=== PATIENT | male | born 1945 | race African-American/Black ===

== ENCOUNTER 2017-11-25 05:42 | Inpatient (IN) | payer MEDICARE ==
[2017-11-25 06:01] LABS: #Eosinphils 0.1 thou/uL (0.0-0.7); #Lymphocytes 1.6 thou/uL (1.20-3.40); #Monocytes 0.9 thou/uL (0.11-0.59); #Neutrophils 6.2 thou/uL (1.40-6.50); %Basophils 0.4 % (0.0-1.0); %Eosinophils 0.8 % (0.0-10.0); %Lymphocytes 18.3 % (21.0-51.0); %Monocytes 10.4 % (0.0-10.0); %Neutrophils 70.1 % (42.0-75.0); Hemoglobin 12.2 g/dL (14.0-18.0); Mean Corpuscular HGB CONC 31.4 g/dL (32.0-36.0); Mean Corpuscular Hemoglobin 29.4 pg (27.0-31.0); Mean Corpuscular Volume 93.6 fl (80.0-94.0); Mean Platelet Volume 7.7 fL (7.4-10.4); Platelet Count 209 thou/uL (130-400); RBC Distribution Width 13.2 % (11.5-14.5); Red Blood Cell (RBC) Count 4.16 mill/uL (4.70-6.10); White Blood Cell (WBC) Count 8.8 thou/uL (4.8-10.8)
[2017-11-25] MEDS ORDERED: Nitroglycerin 2% Ointment 1 INCH/1 GM Packet ONE (06:10)
[2017-11-25 06:28] LABS: ALT (SGPT) 20 U/L (8-55); AST (SGOT) 29 U/L (5-34); Albumin 3.8 g/dL (3.4-4.8); Alkaline Phosphatase 65 U/L (40-150); Anion Gap 12 mmol/L (10-20); BUN (Urea Nitrogen) 28 mg/dL (8.4-25.7); Bilirubin, Total 0.3 mg/dL (0.2-1.2); CK (CPK) 76 U/L (30-200); Calc. Creatinine Clearance 0 mL/min (70-130); Calcium 8.9 mg/dL (7.8-10.44); Carbon Dioxide 22 mmol/L (23-31); Chloride 109 mmol/L (98-107); Estimated GFR-MDRD 68; Globulin 3.2 g/dL (2.4-3.5); Glucose 111 mg/dL (83-110); Potassium 3.9 mmol/L (3.5-5.1); Sodium 139 mmol/L (136-145)
[2017-11-25 06:32] LABS: Troponin I Less than 0.010 ng/mL (< 0.028)
[2017-11-25] MEDS ORDERED: methylPREDNISolone Sod Succ/PF 125 MG/2 ML VIAL ONE (06:32)
[2017-11-25 06:42] LABS: Actual Bicarbonate (HCO3a) 20.7 mEq/L (22-26); Base Excess (BEa) -5.4 mEq/L (0 (+/-) 2.5); CO2 Tension 42.6 mmHg (35.0-45.0); Hematocrit-ABG 37.8 % (42.0-52.0); Hemoglobin (Hb) 11.7 g/dL (14.0-18.0); O2 Tension (PaO2) 195.4 mmHg (80.0-100.0)
[2017-11-25 06:43] LABS: Analyzer IN Cardio ER; Calcium, Ionized 1.2 mmol/L (1.12-1.30); Puncture Site RRA
--- NOTE | 2017-11-25 08:11 | RAD ---
RADIOGRAPH CHEST 1 VIEW: HISTORY: 72-year-old male with dyspnea. FINDINGS: There is hyperinflation of the lungs, consistent with COPD. There is no evidence of air space densit y, pneumothorax, or pulmonary edema. The lateral costophrenic angles are sharp. The cardiomediastin al shadow is narrowed by the pulmonary hyperinflation. IMPRESSION: 1. No acute pulmonary findings. 2. Emphysema. daern bear POS: [facility]
[2017-11-25] MEDS ORDERED: Ondansetron HCl/PF 4 MG/2 ML Vial SLOW IVP PRN (10:49)
[2017-11-25 11:33] VITALS: BMI 17.7
[2017-11-25] MEDS: methylPREDNISolone Sod Succ/PF 125 MG/2 ML VIAL IVP SCH ×2 (15:40→20:00)
[2017-11-25] MEDS: Budesonide 0.5 MG/2 ML NEB NEB SCH (18:32)
[2017-11-25] MEDS: Acetaminophen 325 MG TAB PO PRN (20:00)
[2017-11-25] MEDS: Rosuvastatin 20 MG TAB PO SCH (20:00)
[2017-11-25] MEDS: guaiFENesin ER 600 MG TAB PO SCH (20:00)
[2017-11-25] MEDS: Brimonidine Tartrate 0.2% Ophth Soln 5 ml Bottle EA EYE SCH (21:00)
[2017-11-26] MEDS: methylPREDNISolone Sod Succ/PF 125 MG/2 ML VIAL IVP SCH ×2 (01:15→09:35)
--- NOTE | 2017-11-26 02:32 | HP ---
DATE OF ADMISSION: 11/25/2017 CHIEF COMPLAINT: Exacerbation of chronic obstructive pulmonary disease. HISTORY OF PRESENT ILLNESS: The patient is a 72-year-old male who 2 days prior to arrival in the ER had begun having increasing shortness of breath. He regularly takes breathing treatments at home and he maintained these, but despite that coughing increased and O2 sats dropped. Finally, he called EM S and was 84% on room air. They placed him on BiPAP on the way in from [facility], by the carrie e he had arrived and at [facility] after having some neb treatments, he was significantly improved . However, he is still requiring 3 liters of O2 to keep his O2 sats at 92% or above. He denies naus ea, vomiting, diarrhea, or fever. The cough is mainly clear, but occasionally will have color to it. He has not been able to get relief and will be put in the hospital for exacerbation of chronic obst ructive pulmonary disease. He will be going to a critical intermediate care unit due to the severity of his lungs. PAST MEDICAL HISTORY: Significant for previous Mycobacterium avium, requiring years, worse with trip le antibiotic treatment; cardiac history; congestive heart failure; hypertension; as previously menti oned COPD; arthritis, dyslipidemia, anorexia, gastroparesis. PAST SURGICAL HISTORY: He has also had several surgeries including colon surgery, a TURP. PSYCHIATRIC HISTORY: No previous psychiatric history. SOCIAL HISTORY: He is a past smoker, but has quit more than 10 years ago. Denies alcohol use. ALLERGIES: He has no known drug allergies. MEDICATIONS ON ADMISSION: Include brimonidine 0.2% 1 drop to each eye b.i.d., Ziac 10.25 one q. da y, Crestor 20 mg at bedtime, megestrol 40 mg b.i.d., diltiazem 240 mg q. day, Reglan 5 mg q.i.d., tra madol 50 mg q.6 hours p.r.n. pain, Pepcid 20 mg q. day, Mobic 15 mg q. day, and doxazosin 4 mg q. day . REVIEW OF SYSTEMS: On admission, generally denies chills, fever. Has general weakness and has had t rouble maintaining his weight. HEENT: Denies any eye problems at this time with blurred vision, sita n or drainage. No nasal congestion or drainage. Orally no lesions or pain. Neck: No pain with ran ge of motion or swelling. Chest and respiratory: Has a history of cough and shortness of breath nighat t significantly worsened. Cardiovascular: Denies chest pain or palpitations at this time. Gastroin testinal: Denies nausea, vomiting, diarrhea or pain. Genitourinary: Denies pain with urination or blood in urine or stool. Musculoskeletal: Denies any musculoskeletal pain, swelling, redness or merry nt issues. Skin: Denies any new rashes or lesions. Neurologic: Denies dizziness, headache, sensor y changes. Endocrine: Denies excessive thirst or excessive urination. Hemolytic/Lymph: Denies any clotting issues or adenopathy. Psychiatric: Denies any depression or trouble focusing or change in mentation. PHYSICAL EXAMINATION: VITAL SIGNS: Blood pressure 181/93, pulse 84, respirations 22, temperature 97.6. Pain scale is 0/10 at this time and O2 sats 99% at 3 liters. GENERAL: He is a cachectic, elderly black male, alert, oriented at this time and cooperative. HEENT: Significant for temporal wasting. Pupils are equal, round, and reactive to light. Extraocul ar muscles are intact. Arcus senilis bilaterally. TMs, nares, pharynx are clear. NECK: Supple, trachea midline, no mass. CHEST: With diminished breath sounds throughout. HEART: Regular rate and rhythm, no murmur. ABDOMEN: Scaphoid without organomegaly and nontender. : Deferred. EXTREMITIES: With muscular wasting in upper and lower extremities, but no clubbing, cyanosis, or ian ma. SKIN: Generally poor turgor with no acute rashes or lesions. NEUROLOGIC: Cranial nerves are intact. Mental status is clear. Sensory exam is grossly intact. Ga it and cerebellar function are untested at this time. LABORATORY AND X-RAY FINDINGS: Lab work on admission shows WBCs 8.8, hemoglobin 12.2, hematocrit 38. 9 with platelets of 290. Sodium 139, potassium 3.9, chloride 109, CO2 of 22, BUN 28, creatinine 1.26 with a glucose of 111, lactic acid 0.6. Liver functions normal. BNP 29. Cardiac enzymes are negat breann. ABG: A pH is 7.3, pCO2 of 46, pO2 of 195. Chest x-ray shows no acute process and emphysema. ASSESSMENT: 1. Exacerbation of chronic obstructive pulmonary disease. 2. Acute dyspnea. 3. Hypertension. 4. Severe arthritis. PLAN: Will be to the Intermediate Care Unit for close observation. DuoNeb q.4 hours, Pulmicort b.i. d., Respiratory consultation and serial reevaluation. We will also begin a round of steroids. Time necessary to examine the patient, review chart to perform dictation is 70 minutes.
[2017-11-26] MEDS: Budesonide 0.5 MG/2 ML NEB NEB SCH ×2 (07:55→18:30)
[2017-11-26] MEDS: Bisoprolol Fumarate/HCTZ 10 mg/6.25 mg Tablet PO SCH (08:55)
[2017-11-26] MEDS: predniSONE 20 MG TAB PO SCH ×2 (08:55→16:18)
[2017-11-26] MEDS: Doxazosin Mesylate 4 MG TAB PO SCH (08:56)
[2017-11-26] MEDS: Brimonidine Tartrate 0.2% Ophth Soln 5 ml Bottle EA EYE SCH ×2 (08:56→19:50)
[2017-11-26] MEDS: guaiFENesin ER 600 MG TAB PO SCH ×2 (08:56→19:50)
[2017-11-26] MEDS ORDERED: Pantoprazole 40 MG VIAL IVP SCH (09:00)
[2017-11-26] MEDS: Rosuvastatin 20 MG TAB PO SCH (19:50)
--- NOTE | 2017-11-26 21:19 | CON ---
DATE OF CONSULTATION: 11/26/2017 Sandro Fisher is a 72-year-old male with COPD. He does not come to the office frequently. He presented with complaints of shortness of breath, cough and chest congestion. He has had purulent sputum. He denies hemoptysis. He denies chest pain. PAST MEDICAL HISTORY: Reportedly for; 1. Mycobacterium avium. 2. History of congestive heart failure. 3. History of hypertension. 4. Arthritis. 5. Lipid disorder. 6. History of gastroparesis. 7. History of colon surgery in the past. 8. History of TURP. SOCIAL HISTORY: He is a former smoker, none for more than 10 years. He denies drinking. He does no t use drugs. ALLERGIES: He has no drug allergies. FAMILY HISTORY: Negative for lung disease at an early age. MEDICATIONS: He is on glaucoma eye drops, Ziac, Crestor, Megace, Cardizem, Reglan, tramadol, Pepcid, Mobic and doxazosin. REVIEW OF SYSTEMS: A 10-points otherwise negative. PHYSICAL EXAMINATION: GENERAL: Very pleasant, is in no distress. VITAL SIGNS: He is afebrile, heart rate is 93, respiratory rate is 20, oximetry is 99 on 2 liters, b lood pressure 128/60. He has a slightly disheveled appearance. HEENT: His pupils are equal. Extraocular movements are full. NECK: Supple. LUNGS: Remarkable for coarse wheezes diffusely. HEART: Regular rhythm, no S3. ABDOMEN: Soft and nontender. EXTREMITIES: Without clubbing, cyanosis, or edema. LABORATORY DATA: White count 8.8, hemoglobin 12.2, platelets 209. Sodium 139, potassium 3.9, chloride 109, bicarb 22, BUN 28, creatinine 1.26, glucose 111. Blood gas yesterday 7.3, CO2 of 42, pO2 of 195. IMPRESSION: Chronic obstructive pulmonary disease exacerbation. Chest radiograph was reviewed by me. I do not see any alveolar infiltrates. Hopefully, he will continue to improve with steroids, antibiotics, and nebulizer treatments. This is a 50-minute consultation including a greater than 50% of the time was spent on the unit coord inating care with the staff.
[2017-11-27 06:07] LABS: #Lymphocytes 1.4 thou/uL (1.20-3.40); #Neutrophils 14.7 thou/uL (1.40-6.50); %Basophils 0.2 % (0.0-1.0); %Eosinophils 0.1 % (0.0-10.0); %Lymphocytes 8.4 % (21.0-51.0); %Monocytes 5.8 % (0.0-10.0); %Neutrophils 85.6 % (42.0-75.0); Hemoglobin 10.7 g/dL (14.0-18.0); Mean Corpuscular HGB CONC 31.5 g/dL (32.0-36.0); Mean Corpuscular Hemoglobin 29.5 pg (27.0-31.0); Mean Corpuscular Volume 93.6 fl (80.0-94.0); Mean Platelet Volume 7.4 fL (7.4-10.4); Platelet Count 193 thou/uL (130-400); RBC Distribution Width 13.3 % (11.5-14.5); Red Blood Cell (RBC) Count 3.63 mill/uL (4.70-6.10); White Blood Cell (WBC) Count 17.1 thou/uL (4.8-10.8)
[2017-11-27 06:18] LABS: Anion Gap 12 mmol/L (10-20); BUN (Urea Nitrogen) 34 mg/dL (8.4-25.7); Calc. Creatinine Clearance 44 mL/min (70-130); Calcium 8.7 mg/dL (7.8-10.44); Carbon Dioxide 25 mmol/L (23-31); Chloride 106 mmol/L (98-107); Estimated GFR-MDRD 85; Glucose 139 mg/dL (83-110); Potassium 4.5 mmol/L (3.5-5.1); Sodium 138 mmol/L (136-145)
[2017-11-27] MEDS: Budesonide 0.5 MG/2 ML NEB NEB SCH ×2 (06:37→18:15)
--- NOTE | 2017-11-27 07:40 | PDOC.PULPN ---
Progress Note: Subj/Obj - Subjective Date: 11/27/17 Time: 07:39 Narrative: No longer "seeing things". Feels better - ROS Constitutional: weakness Respiratory: congestion, cough, short of breath, wheezing - Objective Allergies/Adverse Reactions: Allergies Allergy/AdvReac Type Severity Reaction Status Date / Time No Known Allergies Allergy Verified 09/08/13 16:41 Medications: Current Medications Acetaminophen (Tylenol) 650 mg PO Q4H PRN PRN Reason: Temp >100 or Pain Last Admin: 11/25/17 20:00 Dose: 650 mg Albuterol/Ipratropium (Duoneb) 3 ml NEB QID-RT [facility] Last Admin: 11/27/17 06:35 Dose: 3 ml Albuterol/Ipratropium (Duoneb) 3 ml NEB Q2H PRN PRN Reason: Wheezing/SOB Bisoprolol Fumarate/HCTZ (Ziac 10-6.25) 1 tab PO DAILY [facility] Last Admin: 11/26/17 08:55 Dose: 1 tab Brimonidine Tartrate (Alphagan 0.2% [facility]) 1 drop EA EYE BID [facility] Last Admin: 11/26/17 19:50 Dose: 1 drop Budesonide (Pulmicort Neb Solution) 0.5 mg NEB BID-RT [facility] Last Admin: 11/27/17 06:37 Dose: 0.5 mg Diltiazem HCl (Cardizem Cd) 240 mg PO DAILY [facility] Last Admin: 11/26/17 08:55 Dose: 240 mg Doxazosin Mesylate (Cardura) 4 mg PO DAILY [facility] Last Admin: 11/26/17 08:56 Dose: 4 mg Guaifenesin (Mucinex) 1,200 mg PO BID [facility] Last Admin: 11/26/17 19:50 Dose: 1,200 mg Ondansetron HCl (Zofran) 8 mg SLOW IVP Q6H PRN PRN Reason: Nausea Pantoprazole Sodium (Protonix) 40 mg PO DAILY [facility] Last Admin: 11/26/17 08:55 Dose: 40 mg Prednisone (Prednisone) 20 mg PO BID-WM [facility] Last Admin: 11/26/17 16:18 Dose: 20 mg Rosuvastatin Calcium (Crestor) 20 mg PO HS [facility] Last Admin: 11/26/17 19:50 Dose: 20 mg Sodium Chloride (Flush - Normal Saline) 10 ml IVF Q12HR [facility] Last Admin: 11/26/17 19:51 Dose: 10 ml Sodium Chloride (Flush - Normal Saline) 10 ml IVF PRN PRN PRN Reason: Saline Flush MAR Reviewed: Yes Vital Signs: Vital Signs Temp 98.1 F 11/27/17 03:00 Pulse 88 11/27/17 06:37 Resp 20 11/27/17 06:37 BP 123/59 L 11/27/17 03:00 Pulse Ox 99 11/27/17 06:37 Intake & Output 11/26/17 11/27/17 11/27/17 18:59 06:59 18:59 Intake Total 680 Output Total 800 200 Balance -120 -200 Weight 110 lb Intake: Oral 680 Output: Urine 200 Output, [place] 800 Other: Voiding Method Urinal Urinal # Unmeasured Voids 2 Progress Note: Exam - Physical Exam Deviation from normal: mild resp distress HEENT: PERRLA, sclera anicteric Neck: no nodes, no JVD Cardiovascular: RRR Respiratory: rales Deviation from normal: increased AP diameter Gastrointestinal: soft, non-tender Musculoskeletal: no edema Lymphatic: no nodes Psychiatric: normal affect, A&O x 3 Skin: no rash Progress Note: Data - Labs Result Diagrams: 11/27/17 05:35 11/27/17 05:35 Lab results: Laboratory Results 11/27/17 11/27/17 05:35 05:35 WBC 17.1 H RBC 3.63 L Hgb 10.7 L Hct 34.0 L MCV 93.6 MCH 29.5 MCHC 31.5 L RDW 13.3 Plt Count 193 MPV 7.4 Neutrophils % 85.6 H Lymphocytes % 8.4 L Monocytes % 5.8 Eosinophils % 0.1 Basophils % 0.2 Neutrophils # 14.7 H Lymphocytes # 1.4 Monocytes # 1.0 H Eosinophils # 0.0 Basophils # 0.0 Sodium 138 Potassium 4.5 Chloride 106 Carbon Dioxide 25 Anion Gap 12 BUN 34 H Creatinine 1.03 Estimated GFR (MDRD) 85 Glucose 139 H Calcium 8.7 Progress Note: A/P - Problems (1) Chronic obstructive pulmonary disease with acute exacerbation Current Visit: Yes Status: Acute Code(s): J44.1 - CHRONIC OBSTRUCTIVE PULMONARY DISEASE W (ACUTE) EXACERBATION - Plan Plan: Add lovenox for DVT prophylaxis Continue steroids and nebs Add po Azithromax for 10 days Not ready for dc yet
[2017-11-27] MEDS: Doxazosin Mesylate 4 MG TAB PO SCH (09:32)
[2017-11-27] MEDS: Enoxaparin Sodium 40 MG/0.4 ML SYRINGE SC SCH (09:33)
[2017-11-27] MEDS: Bisoprolol Fumarate/HCTZ 10 mg/6.25 mg Tablet PO SCH (09:36)
[2017-11-27] MEDS: guaiFENesin ER 600 MG TAB PO SCH ×2 (09:36→20:36)
[2017-11-27] MEDS: predniSONE 20 MG TAB PO SCH ×2 (09:37→17:44)
[2017-11-27] MEDS: Azithromycin 250 MG TAB PO SCH (09:37)
[2017-11-27] MEDS: Brimonidine Tartrate 0.2% Ophth Soln 5 ml Bottle EA EYE SCH ×2 (09:38→20:36)
--- NOTE | 2017-11-27 12:25 | PQF ---
CLINICAL DOCUMENTATION IMPROVEMENT CLARIFICATION FORM: ICD-10 Updated PLEASE DO AN ADDENDUM TO THE PROGRESS NOTE WITH ANY DOCUMENTATION UPDATES OR ADDITIONS AND CARRY THROUGH TO DC SUMMARY. THANK YOU. Date: 11/27 ATTN: DR. BRIGHT ALANIZ Please exercise your independent, professional judgment in responding to the clarification form. Clinical indicators are provided on the bottom of this form for your review. Please check appropriate box(s): [ ] Protein Calorie Malnutrition: [ ] Mild [ ] Moderate [ ] Severe [ ] Other Malnutrition (please specify) __ [ x ] Underweight without malnutrition [ ] Other diagnosis [ ] Unable to determine Moderate Malnutrition (in chronic illness) Energy Intake: <75% of estimated energy requirement for >1 month Weight Loss: 5%/1 month; 7.5%/3 months; 10%/6 months; 20%/1 year Other: mild body fat loss; mild muscle mass loss; mild fluid accumulation Severe Malnutrition (in chronic illness) Energy Intake: <75% of estimated energy requirement for >1 month Weight Loss: >5%/1 month; >7.5%/3 months; >10%/6 months; >20%/1 year Other: severe body fat loss; severe muscle mass loss; severe fluid accumulation; 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 Qian (This form is maintained as a part of the permanent medical record) 2014 [employer]. All Rights Reserved Qian Mejia RN, [email or web address] Office: [phone] [facility]
--- NOTE | 2017-11-27 12:30 | PRG ---
DATE OF SERVICE: 11/27/2017 The patient is short of breath today. He does not feel like he is ready to go home. He is visiting with a friend who is a joint cutter. PHYSICAL EXAMINATION: GENERAL: He is awake, he is alert and oriented. VITAL SIGNS: Blood pressure 116/50, pulse 90, respirations 24, temperature 99.0. HEENT: Unremarkable. Normal oropharynx. PERRL, sclerae not icteric. He had bilateral arcus senili s, no xanthelasma. NECK: Supple with no increased JVP or carotid bruit. Carotid had good upstroke with no thyromegaly. COR: Regular rate and rhythm. CHEST: Symmetrical, decreased breath sounds. ABDOMEN: Soft, nontender with normoactive bowel sounds. There is no bruit or organomegaly. EXTREMITIES: No edema or cyanosis. He had palpable pedal pulses. SKIN: There is no evidence of ulcers lesion or rash. NEUROLOGIC: He is awake, alert, and oriented to person, place, and time. LABORATORY DATA: White blood cells 17.1, which was a drop from 8.8, H&H 10.7 and 34.0, platelet 193, BUN 34, creatinine 1.03. ASSESSMENT: 1. Chronic obstructive pulmonary disease exacerbation. 2. Anxiety. PLAN: The patient is not yet ready to go home. He is tachypneic on examination. The patient alread y has O2 at home. I have a feeling he will require this all the time now. We will continue the same current medication regime and follow up with a CBC and CMP in the morning.
[2017-11-27] MEDS: Acetaminophen 325 MG TAB PO PRN (17:00)
[2017-11-27] MEDS ORDERED: Benzonatate 100 MG CAP PO PRN (20:03)
[2017-11-27] MEDS: Rosuvastatin 20 MG TAB PO SCH (20:36)
[2017-11-27] MEDS ORDERED: Fluticasone Propionate Nasal Spray 16 gm Bottle NASAL SCH (20:45)
[2017-11-28 06:12] LABS: Band 8 % (5-11); Lymphocytes 12 % (21-51); MDiff Complete? YES; Mean Corpuscular HGB CONC 31.9 g/dL (32.0-36.0); Mean Corpuscular Hemoglobin 29.4 pg (27.0-31.0); Mean Corpuscular Volume 91.9 fl (80.0-94.0); Mean Platelet Volume 8.1 fL (7.4-10.4); Monocytes 3 % (0-10); Neutrophil 77 % (42-75); PLT Morphology Comment Appears Adequate; Platelet Count 203 thou/uL (130-400); RBC Distribution Width 13.2 % (11.5-14.5); Red Blood Cell (RBC) Count 3.74 mill/uL (4.70-6.10); White Blood Cell (WBC) Count 15.4 thou/uL (4.8-10.8)
[2017-11-28 06:26] LABS: ALT (SGPT) 70 U/L (8-55); AST (SGOT) 67 U/L (5-34); Albumin 3.4 g/dL (3.4-4.8); Alkaline Phosphatase 59 U/L (40-150); Anion Gap 12 mmol/L (10-20); BUN (Urea Nitrogen) 25 mg/dL (8.4-25.7); Bilirubin, Total 0.2 mg/dL (0.2-1.2); Calc. Creatinine Clearance 49 mL/min (70-130); Calcium 8.6 mg/dL (7.8-10.44); Carbon Dioxide 28 mmol/L (23-31); Chloride 103 mmol/L (98-107); Estimated GFR-MDRD Greater than 90; Globulin 2.7 g/dL (2.4-3.5); Glucose 113 mg/dL (83-110); Potassium 4.1 mmol/L (3.5-5.1); Protein, Total 6.1 g/dL (5.8-8.1); Sodium 139 mmol/L (136-145)
[2017-11-28] MEDS: Budesonide 0.5 MG/2 ML NEB NEB SCH ×2 (07:51→19:36)
--- NOTE | 2017-11-28 08:17 | PDOC.PULPN ---
Progress Note: Subj/Obj - Subjective Date: 11/28/17 Time: 08:15 Narrative: feeling better, but still weak - Objective Allergies/Adverse Reactions: Allergies Allergy/AdvReac Type Severity Reaction Status Date / Time No Known Allergies Allergy Verified 09/08/13 16:41 MAR Reviewed: Yes Vital Signs: Vital Signs Temp 98.0 F 11/28/17 07:00 Pulse 83 11/28/17 07:50 Resp 18 11/28/17 07:50 BP 165/77 H 11/28/17 07:00 Pulse Ox 98 11/28/17 07:51 Intake & Output 11/27/17 11/28/17 11/28/17 18:59 06:59 18:59 Intake Total 500 120 Output Total 600 400 Balance -100 -280 Intake: Oral 500 120 Output: Urine 600 400 Other: Voiding Method Urinal Urinal # Bowel Movements 2 1 Progress Note: Exam - Physical Exam Constitutional: NAD HEENT: PERRLA Cardiovascular: RRR Focused Respiratory Location: decreased breath sounds: Right, Left Gastrointestinal: soft, non-tender Musculoskeletal: no edema Neurological: non-focal, moves all 4 limbs Lymphatic: no nodes Psychiatric: normal affect, A&O x 3 Skin: no rash Progress Note: Data - Labs Result Diagrams: 11/28/17 05:04 11/28/17 05:04 Progress Note: A/P - Problems (1) Chronic obstructive pulmonary disease with acute exacerbation Current Visit: Yes Status: Acute Code(s): J44.1 - CHRONIC OBSTRUCTIVE PULMONARY DISEASE W (ACUTE) EXACERBATION - Plan Plan: Too weak to do much. I have encouraged him to increase activity. Discharge home 1-2 days. Continue steroids, nebs, abx.
[2017-11-28] MEDS: Bisoprolol Fumarate/HCTZ 10 mg/6.25 mg Tablet PO SCH (08:39)
[2017-11-28] MEDS: Brimonidine Tartrate 0.2% Ophth Soln 5 ml Bottle EA EYE SCH ×2 (08:39→20:09)
[2017-11-28] MEDS: Doxazosin Mesylate 4 MG TAB PO SCH (08:41)
[2017-11-28] MEDS: Enoxaparin Sodium 40 MG/0.4 ML SYRINGE SC SCH (08:41)
[2017-11-28] MEDS: guaiFENesin ER 600 MG TAB PO SCH ×2 (08:43→20:09)
[2017-11-28] MEDS: predniSONE 20 MG TAB PO SCH ×2 (08:44→19:28)
[2017-11-28] MEDS: Fluticasone Propionate Nasal Spray 16 gm Bottle NASAL SCH (08:44)
[2017-11-28] MEDS: Azithromycin 250 MG TAB PO SCH (09:27)
[2017-11-28] MEDS ORDERED: Hyoscyamine Sulfate SL 0.125 mg Tablet SL PRN (10:16)
[2017-11-28] MEDS: Acetaminophen 325 MG TAB PO PRN (11:49)
[2017-11-28] MEDS ORDERED: Fentanyl 100 MCG/2 ML VIAL SLOW IVP PRN (18:41)
[2017-11-28] MEDS: HYDROcodone/Acetaminophen 5/325 mg Tablet PO PRN (19:27)
--- NOTE | 2017-11-28 20:02 | RAD ---
TWO VIEWS OF THE ABDOMEN: 11/28/17 HISTORY: Abdominal pain. COMPARISON: 11/22/15. FINDINGS: The visualized lung bases are clear. There is gaseous distention of multiple loops of bowel with a di lated loop of bowel in the central abdomen which may actually represent the colon, but this is diffic ult to definitely determine on this exam. Multiple dilated loops of small bowel noted on the prior ex am were not seen on this study. Vascular calcifications seen in the abdominal aorta and iliac arteri es. Prominent degenerative changes are seen in the lower lumbar spine. No other interval change. IMPRESSION: Bowel gas pattern is overall nonspecific, but there is a dilated gas filled loop of bowel within the central abdomen. This may actually represent the colon but it is difficult to further evaluate on thi s study. POS: [facility]
[2017-11-28] MEDS: Rosuvastatin 20 MG TAB PO SCH (20:09)
[2017-11-29] MEDS: Budesonide 0.5 MG/2 ML NEB NEB SCH ×2 (06:25→19:39)
[2017-11-29 06:31] LABS: Anion Gap 8 mmol/L (10-20); BUN (Urea Nitrogen) 22 mg/dL (8.4-25.7); Calc. Creatinine Clearance 54 mL/min (70-130); Calcium 8.4 mg/dL (7.8-10.44); Carbon Dioxide 33 mmol/L (23-31); Chloride 99 mmol/L (98-107); Estimated GFR-MDRD Greater than 90; Glucose 111 mg/dL (83-110); Sodium 136 mmol/L (136-145)
[2017-11-29 06:48] LABS: Hemoglobin 10.5 g/dL (14.0-18.0); Mean Corpuscular HGB CONC 31.4 g/dL (32.0-36.0); Mean Corpuscular Hemoglobin 28.8 pg (27.0-31.0); Mean Corpuscular Volume 91.8 fl (80.0-94.0); Mean Platelet Volume 7.7 fL (7.4-10.4); Platelet Count 213 thou/uL (130-400); RBC Distribution Width 13.2 % (11.5-14.5); Red Blood Cell (RBC) Count 3.64 mill/uL (4.70-6.10); White Blood Cell (WBC) Count 13.7 thou/uL (4.8-10.8)
[2017-11-29 08:26] LABS: Band 5 % (5-11); Lymphocytes 8 % (21-51); MDiff Complete? YES; Metamyelocyte 3 % (0-0); Monocytes 3 % (0-10); Myelocyte 1 % (0-0); Neutrophil 79 % (42-75); RBC Morphology Normal; Reactive Lymphocytes 1 % (0-10)
[2017-11-29] MEDS: Amlodipine 5 MG TAB PO SCH (08:50)
[2017-11-29] MEDS: predniSONE 20 MG TAB PO SCH (08:52)
[2017-11-29] MEDS: guaiFENesin ER 600 MG TAB PO SCH ×2 (08:52→20:16)
--- NOTE | 2017-11-29 08:52 | PRG ---
DATE OF SERVICE: 11/29/2017 SUBJECTIVE: The patient had a restless night. He was having abdominal discomfort. His blood pressu re was high; however, they cooled his room off, as his room was hot, his blood pressure did normalize ; however, this morning, he is awake. He still has high blood pressure and he is short of breath. PHYSICAL EXAMINATION: GENERAL: He is awake, alert, and oriented. His is at bedside. VITAL SIGNS: Blood pressure 175/80, pulse 98, respirations 24. He is afebrile. NECK: Supple with no increased JVP or carotid bruit. Carotid had good upstroke with no thyromegaly. COR: Regular rate and rhythm. CHEST: Decreased breath sounds with few wheezing. ABDOMEN: Soft, nontender with normoactive bowel sounds. No bruit or organomegaly. EXTREMITIES: No edema or cyanosis. He had palpable pedal pulses. SKIN: There is no evidence of ulcers, lesion or rash. NEUROLOGIC: He is awake, alert, and oriented to person, place, and time. LABORATORY DATA: Abdominal x-ray is unremarkable. His white blood cells 13.7, H&H is 10.5 and 33.4, MCHC 31.4, platelet count is 213. His BUN and crea tinine are normal. He was found to have elevated liver enzymes on 11/28/2017. ASSESSMENT: 1. Chronic obstructive pulmonary disease exacerbation. 2. Hypertension. 3. Abdominal discomfort. 4. Elevated liver function tests. 5. Multiple medical problems. PLAN: 1. We will add Norvasc to his medication regime. 2. We will follow up with a CMP and CBC in the morning. 3. We will add abdominal ultrasound.
[2017-11-29] MEDS: Doxazosin Mesylate 4 MG TAB PO SCH (08:53)
[2017-11-29] MEDS: Azithromycin 250 MG TAB PO SCH (08:53)
[2017-11-29] MEDS: Enoxaparin Sodium 40 MG/0.4 ML SYRINGE SC SCH (08:53)
[2017-11-29] MEDS: Brimonidine Tartrate 0.2% Ophth Soln 5 ml Bottle EA EYE SCH ×2 (08:54→20:16)
[2017-11-29] MEDS: Fluticasone Propionate Nasal Spray 16 gm Bottle NASAL SCH (08:56)
[2017-11-29] MEDS: Bisoprolol Fumarate/HCTZ 10 mg/6.25 mg Tablet PO SCH (08:56)
--- NOTE | 2017-11-29 09:38 | PRG ---
DATE OF SERVICE: 11/29/2017 SUBJECTIVE: He had a bad night last night in terms of his breathing. OBJECTIVE: VITAL SIGNS: On exam, his temperature is 98.3, pulse 94, blood pressure 135/85, O2 sat 98%. HEENT: Unremarkable. NECK: Supple. No JVD. CHEST: Clear except for wheezing in the bases. CARDIAC: S1 and S2 regular. ABDOMEN: Soft. EXTREMITIES: No edema. ASSESSMENT: Chronic obstructive pulmonary disease with exacerbation. RECOMMENDATION: Since he has continued to have trouble, I would put him back on IV steroids. Contin ue nebulization therapy, but change nebs to every 4 hours instead of 4 times daily.
[2017-11-29 10:05] LABS: ALT (SGPT) 80 U/L (8-55); AST (SGOT) 53 U/L (5-34); Albumin 3.3 g/dL (3.4-4.8); Alkaline Phosphatase 55 U/L (40-150); Bilirubin, Total 0.3 mg/dL (0.2-1.2); Globulin 2.4 g/dL (2.4-3.5); Protein, Total 5.7 g/dL (5.8-8.1)
--- NOTE | 2017-11-29 15:05 | ULT ---
SONOGRAM ABDOMEN: History: Abdominal pain. FINDINGS: Shadowing stones are apparent within the gallbladder lumen. There is no gallbladder wall thickening o r pericholecystic fluid. Common duct is 0.2 cm diameter. Liver is unremarkable without focal mass or intrahepatic biliary dilatation. Cysts arise from the cortex of each kidney. No hydronephrosis. The s pleen, kidneys, and visualized portions of the abdominal aorta, IVC, and pancreas are within normal l imits. IMPRESSION: 1. Cholelithiasis. No evidence of acute biliary obstruction. 2. Small bilateral renal cysts. POS: [facility]
[2017-11-29] MEDS: HYDROcodone/Acetaminophen 5/325 mg Tablet PO PRN ×2 (18:21→22:37)
[2017-11-29] MEDS: Rosuvastatin 20 MG TAB PO SCH (20:16)
[2017-11-30] MEDS: HYDROcodone/Acetaminophen 5/325 mg Tablet PO PRN ×2 (05:12→20:30)
[2017-11-30 06:32] LABS: Band 4 % (5-11); Hemoglobin 11.4 g/dL (14.0-18.0); Lymphocytes 6 % (21-51); MDiff Complete? YES; Mean Corpuscular HGB CONC 31.6 g/dL (32.0-36.0); Mean Corpuscular Hemoglobin 28.8 pg (27.0-31.0); Mean Corpuscular Volume 91.1 fl (80.0-94.0); Mean Platelet Volume 7.3 fL (7.4-10.4); Monocytes 1 % (0-10); Neutrophil 89 % (42-75); Platelet Count 246 thou/uL (130-400); Red Blood Cell (RBC) Count 3.97 mill/uL (4.70-6.10); White Blood Cell (WBC) Count 16.9 thou/uL (4.8-10.8)
[2017-11-30 06:39] LABS: ALT (SGPT) 67 U/L (8-55); AST (SGOT) 33 U/L (5-34); Albumin 3.5 g/dL (3.4-4.8); Alkaline Phosphatase 60 U/L (40-150); Anion Gap 12 mmol/L (10-20); BUN (Urea Nitrogen) 25 mg/dL (8.4-25.7); Bilirubin, Total 0.4 mg/dL (0.2-1.2); Calc. Creatinine Clearance 50 mL/min (70-130); Calcium 8.7 mg/dL (7.8-10.44); Carbon Dioxide 31 mmol/L (23-31); Chloride 93 mmol/L (98-107); Estimated GFR-MDRD Greater than 90; Globulin 2.8 g/dL (2.4-3.5); Glucose 145 mg/dL (83-110); Protein, Total 6.3 g/dL (5.8-8.1); Sodium 132 mmol/L (136-145)
[2017-11-30] MEDS: Budesonide 0.5 MG/2 ML NEB NEB SCH ×2 (06:48→19:35)
[2017-11-30] MEDS: Enoxaparin Sodium 40 MG/0.4 ML SYRINGE SC SCH (07:42)
[2017-11-30] MEDS: guaiFENesin ER 600 MG TAB PO SCH ×2 (07:42→20:30)
[2017-11-30] MEDS: Fluticasone Propionate Nasal Spray 16 gm Bottle NASAL SCH (07:42)
[2017-11-30] MEDS: Azithromycin 250 MG TAB PO SCH (07:43)
[2017-11-30] MEDS: Doxazosin Mesylate 4 MG TAB PO SCH (07:43)
[2017-11-30] MEDS: Amlodipine 5 MG TAB PO SCH (07:43)
[2017-11-30] MEDS: Brimonidine Tartrate 0.2% Ophth Soln 5 ml Bottle EA EYE SCH ×2 (07:43→20:29)
[2017-11-30] MEDS: Bisoprolol Fumarate/HCTZ 10 mg/6.25 mg Tablet PO SCH (07:45)
--- NOTE | 2017-11-30 08:01 | PQF ---
CLINICAL DOCUMENTATION IMPROVEMENT CLARIFICATION FORM: ICD-10 Updated PLEASE DO AN ADDENDUM TO THE PROGRESS NOTE WITH ANY DOCUMENTATION UPDATES OR ADDITIONS AND CARRY THROUGH TO DC SUMMARY. THANK YOU. DATE: 11/30 ATTN: DR. BRIGHT ALANIZ Please exercise your independent, professional judgment in responding to the clarification form. Clinical indicators are provided on the bottom of this form for your review. Please check appropriate box(s): [ ] Acute Respiratory Failure: [ ] with Hypoxia [ ] with Hypercapnia [ x ] Acute Respiratory Failure due to: (etiology) COPD [ ] Other diagnosis [ ] Unable to determine For continuity of documentation, please document condition throughout progress notes and discharge summary. Thank You. CLINICAL INDICATORS - SIGNS / SYMPTOMS / LABS ER PRESENTATION 11/25: PER EMS - RA SAT 84%, PLACED ON BIPAP. ARRIVED TO ER W/ DYSPNEA, BREATH SOUNDS W/RHONCHI, RESPIRATORY EFFORT LABORED/TACHYPNEIC/ RESPIRATIONS IRREGULAR, CONVERSES IN SINGLE WORDS. IN MODERATE RESPIRATORY DISTRESS - NASAL FLARING, TRIPOD POSITIONING; RR: 22-26 02 SATS 100% ON BIPAP PHYSICIAN H&P DOCUMENTATION 11/25: STILL REQUIRING 3L NC TO KEEP 02 SATS ABOVE 92% RISK FACTORS: COPD EXACERBATION, SEVERE CHF ACUTE DYSPNEA TREATMENTS: BIPAP (IN ER) CRITICAL INTERMEDIATE CARE UNIT D/T SEVERITY OF LUNGS (H&P) RESPIRATORY TREATMENTS (NEBS 11/25 - PRESENT) SUPPLEMENTAL OXYGEN (11/25 - PRESENT, 2-3L NC) PULMONOLOGY CONSULT THANK YOU! Qian (This form is maintained as a part of the permanent medical record) 2014 [employer]. All Rights Reserved Qian Mejia RN, [email or web address] Office: [phone] [facility]
--- NOTE | 2017-11-30 09:11 | PRG ---
DATE OF SERVICE: 11/30/2017 The patient is still feeling poorly, had difficulty sleeping last night. PHYSICAL EXAMINATION: VITAL SIGNS: Temperature 98.6, respirations 24, O2 sat 96% on 2 liters. HEENT: Unremarkable. NECK: No JVD. CHEST: Diminished, but clear breath sounds, but slightly tachypneic. CARDIAC: S1, S2 regular. ABDOMEN: Soft, nontender. EXTREMITIES: No edema. ASSESSMENT: Chronic obstructive pulmonary disease exacerbation. PLAN: Continue antibiotics, nebulization treatments, and steroids. He probably needs a couple more days in the hospital.
[2017-11-30] MEDS: Rosuvastatin 20 MG TAB PO SCH (20:30)
[2017-12-01] MEDS: HYDROcodone/Acetaminophen 5/325 mg Tablet PO PRN ×4 (00:48→14:58)
[2017-12-01 06:11] LABS: Anion Gap 13 mmol/L (10-20); BUN (Urea Nitrogen) 31 mg/dL (8.4-25.7); Calc. Creatinine Clearance 50 mL/min (70-130); Calcium 8.9 mg/dL (7.8-10.44); Carbon Dioxide 32 mmol/L (23-31); Chloride 93 mmol/L (98-107); Estimated GFR-MDRD Greater than 90; Glucose 164 mg/dL (83-110); Potassium 3.8 mmol/L (3.5-5.1); Sodium 134 mmol/L (136-145)
[2017-12-01] MEDS: Budesonide 0.5 MG/2 ML NEB NEB SCH ×2 (06:41→18:42)
[2017-12-01 06:57] LABS: Band 6 % (5-11); Lymphocytes 8 % (21-51); MDiff Complete? YES; Mean Corpuscular HGB CONC 31.7 g/dL (32.0-36.0); Mean Corpuscular Hemoglobin 28.9 pg (27.0-31.0); Mean Corpuscular Volume 91.3 fl (80.0-94.0); Monocytes 8 % (0-10); Neutrophil 78 % (42-75); Platelet Count 280 thou/uL (130-400); RBC Distribution Width 13.1 % (11.5-14.5); Red Blood Cell (RBC) Count 4.14 mill/uL (4.70-6.10); White Blood Cell (WBC) Count 19.5 thou/uL (4.8-10.8)
[2017-12-01] MEDS: guaiFENesin ER 600 MG TAB PO SCH ×2 (09:08→20:40)
[2017-12-01] MEDS: Amlodipine 5 MG TAB PO SCH (09:09)
[2017-12-01] MEDS: Bisoprolol Fumarate/HCTZ 10 mg/6.25 mg Tablet PO SCH (09:10)
[2017-12-01] MEDS: Doxazosin Mesylate 4 MG TAB PO SCH (09:11)
[2017-12-01] MEDS: Fluticasone Propionate Nasal Spray 16 gm Bottle NASAL SCH (09:11)
[2017-12-01] MEDS: Brimonidine Tartrate 0.2% Ophth Soln 5 ml Bottle EA EYE SCH ×2 (09:13→20:39)
[2017-12-01] MEDS: Enoxaparin Sodium 40 MG/0.4 ML SYRINGE SC SCH (09:15)
[2017-12-01] MEDS ORDERED: Simethicone Chewable 80 MG TAB PO SCH (14:45)
[2017-12-01] MEDS: Simethicone Chewable 80 MG TAB PO SCH ×2 (18:12→22:22)
[2017-12-01] MEDS: Rosuvastatin 20 MG TAB PO SCH (20:41)
[2017-12-01] MEDS ORDERED: Zolpidem Tartrate 5 MG TAB PO SCH (21:00)
[2017-12-01] MEDS ORDERED: Temazepam 15 MG CAP PO PRN (22:16)
[2017-12-02 05:22] LABS: Anion Gap 10 mmol/L (10-20); BUN (Urea Nitrogen) 32 mg/dL (8.4-25.7); Calc. Creatinine Clearance 51 mL/min (70-130); Calcium 8.3 mg/dL (7.8-10.44); Carbon Dioxide 35 mmol/L (23-31); Chloride 92 mmol/L (98-107); Estimated GFR-MDRD Greater than 90; Glucose 134 mg/dL (83-110); Potassium 3.4 mmol/L (3.5-5.1); Sodium 134 mmol/L (136-145)
[2017-12-02 05:30] LABS: Band 4 % (5-11); Lymphocytes 6 % (21-51); MDiff Complete? YES; Mean Corpuscular HGB CONC 32.4 g/dL (32.0-36.0); Mean Corpuscular Hemoglobin 29.5 pg (27.0-31.0); Mean Corpuscular Volume 91.1 fl (80.0-94.0); Mean Platelet Volume 7.1 fL (7.4-10.4); Metamyelocyte 2 % (0-0); Monocytes 4 % (0-10); Myelocyte 1 % (0-0); Neutrophil 83 % (42-75); Platelet Count 272 thou/uL (130-400); Red Blood Cell (RBC) Count 3.73 mill/uL (4.70-6.10); White Blood Cell (WBC) Count 18.5 thou/uL (4.8-10.8)
[2017-12-02] MEDS: Budesonide 0.5 MG/2 ML NEB NEB SCH (06:47)
[2017-12-02] MEDS: guaiFENesin ER 600 MG TAB PO SCH (08:11)
[2017-12-02] MEDS: Simethicone Chewable 80 MG TAB PO SCH (08:11)
[2017-12-02] MEDS: Amlodipine 5 MG TAB PO SCH (08:12)
[2017-12-02] MEDS: Enoxaparin Sodium 40 MG/0.4 ML SYRINGE SC SCH (08:13)
[2017-12-02] MEDS: Doxazosin Mesylate 4 MG TAB PO SCH (08:13)
[2017-12-02] MEDS: Bisoprolol Fumarate/HCTZ 10 mg/6.25 mg Tablet PO SCH (08:14)
[2017-12-02] MEDS: Fluticasone Propionate Nasal Spray 16 gm Bottle NASAL SCH (08:15)
[2017-12-02] MEDS: Brimonidine Tartrate 0.2% Ophth Soln 5 ml Bottle EA EYE SCH (08:15)
--- NOTE | 2017-12-02 10:26 | RAD ---
CHEST 2 VIEWS: HISTORY: Dyspnea. COMPARISON: 11/25/17. FINDINGS: Cardiac silhouette and pulmonary vasculature are unremarkable. Mediastinum is midline with aortic ca lcification. Lungs remain hyperinflated with linear scarring. No confluent airspace consolidation, pneumothorax, or pleural fluid are apparent. IMPRESSION: 1. Chronic obstructive pulmonary disease. 2. Atherosclerosis. POS: [facility]
[2017-12-02 11:09] VITALS: BP 141/65; TEMP 98.7
--- NOTE | 2017-12-03 06:20 | DIS ---
DATE OF ADMISSION: 11/25/2017 DATE OF DISCHARGE: 12/02/2017 CHIEF COMPLAINT ON ADMISSION: Exacerbation of chronic obstructive pulmonary disease. History and physical have previously been dictated. I will resume from there with hospital course. HOSPITAL COURSE: The patient was placed in an oncology bed/medical bed for routine nebulizer treatme nts. IV steroid therapy, pulmonary consultation, and further evaluation. In the first 24-48 hours s howed very little improvement. Dr. Borjas and Dr. Parker saw the patient in consultation, sadie romano various changes in level of therapy, howver, it simply took time over several days for the patient to improve. He began to have abdominal pain around 214/21, this was probably felt to be due to ei er gastroparesis or additional intermittent small-bowel obstruction due to his prior extensive abdomi nal surgeries. With Levsin and Gas-X, these have both improved, and with two more days of steroid the rapy q.4 hours nebulizer treatments and time, he slowly improved to the point where he is able to fin ally be discharged on 12/02/2017. DIAGNOSES AT THE TIME OF DISCHARGE: Exacerbation of chronic obstructive pulmonary disease, abdominal pain probably due to intestinal adhesions. He will be discharged home. Follow up will be in 48 yumiko rs to reassess him. MEDICATION AT THE TIME OF DISCHARGE: Prednisone 20 mg 2 tabs b.i.d. for 3 days, 1 tab b.i.d. for 3 d ays, then 1 tab q. day for 3 days. He is to continue doing DuoNeb treatments q.4 hours at home. He is to stay indoors, and we will reassess him as mentioned in 48 hours. The time required to evaluate the chart, examining the patient in detail, and answered questions for the patient and his , then do the prescriptions and dictation came to 40 minutes.
== END 2017-12-02 13:15 | disposition home or self-care (01) | DRG 189 ==
LOC: ERS 05:42 → ERHOLD 07:52 → IMCU/EMU 09:55 → ONC 11-26 18:51
PROVIDERS: ADMIT Specialist; ATTEND Specialist
PROC: 5A09357 Assistance with Respiratory Ventilation, Less than 24 Consecutive Hours, Continuous Positive Airway Pressure (ICD-10-PCS; principal; 2017-11-25)
DX: J96.00 Acute respiratory failure, unspecified whether with hypoxia or hypercapnia (principal); K56.50 Intestinal adhesions [bands], unspecified as to partial versus complete obstruction; J44.1 Chronic obstructive pulmonary disease with (acute) exacerbation; I50.9 Heart failure, unspecified; I11.0 Hypertensive heart disease with heart failure; Z68.1 Body mass index [BMI] 19.9 or less, adult; R44.3 Hallucinations, unspecified; E78.5 Hyperlipidemia, unspecified; R63.6 Underweight; M19.90 Unspecified osteoarthritis, unspecified site; Z87.891 Personal history of nicotine dependence; Z79.899 Other long term (current) drug therapy; T37.5X5A Adverse effect of antiviral drugs, initial encounter; Y92.239 Unspecified place in hospital as the place of occurrence of the external cause
CPT/HCPCS: 36415; 36416; 71045; 71046; 74019; 76700; 80048; 80053; 82553; 82805; 83605; 83880; 84484; 85025; 87040; 94640; 94660; 94760; 96374; A4216; G8978-GP-CJ; G8979-GP-CI; J1650; J2920; J2930; J7506; J7620; J7626

== ENCOUNTER 2018-02-20 10:25 | Outpatient (CLI) | payer MEDICARE | END 2018-02-20 10:26 | disposition home or self-care (01) | LOC: BICRAD 10:25 | PROVIDERS: ATTEND Otolaryngology Plastic Surgery within the Head & Neck | DX: J18.9 Pneumonia, unspecified organism (principal); R05 Cough; R61 Generalized hyperhidrosis; J44.9 Chronic obstructive pulmonary disease, unspecified; I70.0 Atherosclerosis of aorta | CPT/HCPCS: 71046 ==

== ENCOUNTER 2018-03-07 12:32 | Inpatient (IN) | payer MEDICARE ==
[2018-03-07 13:00] VITALS: BMI 19.1
[2018-03-07] MEDS ORDERED: traMADol HCl 50 MG TAB PO PRN (13:04)
--- NOTE | 2018-03-07 13:21 | HP ---
CHIEF COMPLAINT: Exacerbation of chronic obstructive pulmonary disease and neck and back pain. HISTORY OF PRESENT ILLNESS: The patient is a 72-year-old male who for 3-4 days prior to admission be eduardo to have severe neck and low back pain. He came to Dr. Singh's office 2 days prior to admission a nd was treated with NSAIDs and mild muscle relaxer. This has failed to show any improvement. His br eathing; however, has significantly worsened. He has a history of COPD. He was previously hospitali zed for an exacerbation on 11/25/2017 to [facility]. This particular episode is fraught with wyatt p chest congestion. He is unable to move the mucus out of his chest. He is wheezing loudly, coughin g and dyspneic with the slightest exertion. He comes in my office on this day for evaluation complai baldo of both the neck and back pain and shortness of breath. He has been taking some tramadol for th e pain without relief. He has been using his nebulizer treatments at home also without relief. He s tates he just cannot get the thick mucus out of his chest. In the office as he is noted to have dimi nished air movement in all lobes wheezing, rhonchi, and his O2 sat is 84% at which point his was present, exhausted from his lack of sleep and states he is unable to care for himself. She cannot c are for him as he is dyspneic with minimal exertion and too weak to do his ADLs. 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 He has done well since coming off that overall. He has had some cachexia, which responded wel l to Megace in the past. He has a cardiac history, congestive heart failure, hypertension, arthritis , dyslipidemia, gastroparesis. Irritable bowel syndrome. PAST SURGICAL HISTORY: Colon surgery and TURP. PSYCHIATRIC HISTORY: Negative. SOCIAL HISTORY: He is a previous smoker, has quit more than 10 years. He does not use alcohol. ALLERGIES: He has no known drug allergies. CURRENT MEDICATIONS: Amlodipine 5 mg p.o. daily, Ziac 10/6.25 one p.o. daily, Librax 1 p.o. t.i.d., DuoNebs q.i.d., Meloxicam 15 mg daily, rosuvastatin 10 mg daily, megestrol 40 mg b.i.d., trazodone 50 mg at bedtime, Protonix 40 mg daily, Levsin 0.125 mg 2 tabs sublingual p.r.n. abdominal cramps. He has been successfully weaned off steroids. REVIEW OF SYSTEMS: GENERAL: He denies chills, fever. He has chronic cough, weakness and dyspnea. He has trouble maint aining his weight. HEENT: Denies eye problems or blurred vision. There is no nasal congestion or drainage orally. No lesions. NECK: Significant for pain and spasm at the back of his neck. CHEST: Chest and respiratory significant for cough, dyspnea, wheezing. CARDIOVASCULAR: Denies palpitations or chest pain. GASTROINTESTINAL: Denies nausea, vomiting or diarrhea. GENITOURINARY: Denies any blood in urine or stool or painful urination. MUSCULOSKELETAL: He hurts in his neck and down the back to the left side. These were felt to be mus culoskeletal in nature. SKIN: No acute rashes or lesions. PSYCHIATRIC: Psychiatrically denies any depression or trouble focusing. ENDOCRINE: Denies excessive thirst, urination. HEMOLYTIC: Denies any clots or adenopathy or bleeding tendencies. PHYSICAL EXAMINATION: VITAL SIGNS: At the time of admission, weight is 115. He is 5 feet 5 inches tall, blood pressure 12 0/45, temperature 97.2, pulse of 112, and O2 sat at 84%. GENERAL: This is a cachectic, elderly male, alert, oriented and cooperative. HEENT: Normocephalic and atraumatic. Pupils are equal, round, and reactive to light with arcus josue lis bilaterally. Sclerae are nonicteric. TMs, nares, and pharynx are clear. NECK: Supple, but tender at the septal insertion of the trapezial muscles with spasm and tenderness on palpation. Diminished range of motion due to pain. CHEST: Chest with diffuse wheezes, rhonchi, and general diminished breath sounds. HEART: Regular rate and rhythm, no audible murmur. ABDOMEN: Scaphoid without organomegaly, nontender to exam. Well-healed scar. GENITOURINARY: Deferred. EXTREMITIES: Without clubbing, cyanosis, or edema. Range of motion of extremities are normal. Musc ular wasting is noted mildly in all extremities. There is no cyanosis or edema. There is mild initi al clubbing noted in his nails. SKIN: No acute rashes or lesions. NEUROLOGIC: Cranial nerves are intact. Gait is weak, but steady. Cerebellar function intact. Ment al status clear. Sensory exam is grossly intact. LABORATORY: Lab work is pending at the time of admission. Chest x-ray pending at the time of admission. ASSESSMENT: 1. Acute exacerbation of chronic obstructive pulmonary disease. 2. Hypoxia. 3. Musculoskeletal strain to the cervical spine. 4. Hypertension. 5. Irritable bowel syndrome with gastroparesis. PLAN: The plan will be initially observation at the hospital, will probably lead to full admission, begin neb treatments q.4h. and p.r.n. q.1 hour. We will begin mucolytics such as acetylcysteine 20% solution 3 mL nebs q.i.d., O2 supplementation to keep O2 sat over 92%, IV steroid therapy at 125 mg q .6 hours - Solu-Medrol, and then finally an appetite stimulant with Megace 2 teaspoons b.i.d. and ser ial reevaluation with adjustments in modification to treatment plan. He is admitted in guarded, but stable condition.
[2018-03-07] MEDS ORDERED: Azithromycin 250 MG in Syringe 0 ML IVPB SCH (14:15)
--- NOTE | 2018-03-07 14:39 | CON ---
DATE OF CONSULTATION: 03/07/2018 CONSULTING PHYSICIAN: Dr. Cuauhtemoc Singh. REASON FOR CONSULTATION: COPD exacerbation. HISTORY OF PRESENT ILLNESS: Mr. Fisher is a 72-year-old male with very severe COPD. He presented to Dr. Singh' office today with increasing shortness of breath and mucus production. He was subsequently brought into the hospital on observation status for further treatment and evaluation. PAST MEDICAL HISTORY: 1. Severe COPD. 2. Atypical mycobacterial colonization versus infection of the chest. 3. Significant cachexia. 4. Congestive heart failure. 5. Hypertension. 6. Arthritis. 7. Hyperlipidemia. 8. Gastroparesis. PAST SURGICAL HISTORY: 1. He has had colon surgery in the past with significant complications afterwards. 2. Transurethral resection of the prostate. SOCIAL HISTORY: Quit smoking about 15 years ago. Does not consume alcohol, does not use illicit drugs. ALLERGIES: None. FAMILY MEDICAL HISTORY: Negative for COPD. MEDICATIONS PRIOR TO ADMISSION: Amlodipine 5 mg daily, Ziac 10/6.25 one tablet daily, Librax 1 t.i.d., DuoNeb 4 times daily, Meloxicam 15 mg daily, rosuvastatin 10 mg daily, Megace 40 mg b.i.d., trazodone 50 mg at bedtime, Protonix 40 mg daily, Levsin 0.125 mg 2 tablets as needed for cramping. He is also on DuoNeb. He is not on steroids or antibiotics at this time, although he says he had a course of antibiotics about a week ago as an outpatient for what was called community-acquired pneumonia. REVIEW OF SYSTEMS: He has had no fever or chills. He has had a strongly productive cough with yellow sputum. He has lost some weight. He has had no hematemesis, melena, hematochezia, hemoptysis, hematuria, or dysuria. PHYSICAL EXAMINATION: VITAL SIGNS: Temperature 98.2, pulse 101, respirations 20, O2 sat 100% on 2 liters, blood pressure 132/63. GENERAL: He is awake and alert. He is always in mild to moderate respiratory discomfort. HEENT: Remarkable for bitemporal wasting. His oropharynx is clear. NECK: No adenopathy, no JVD, no bruits. LUNGS: He has bilateral moderate expiratory wheezing with no accessory muscle use. CARDIAC: S1, S2, slightly tachycardic without murmur, rub, or gallop. ABDOMEN: Soft, nontender, nondistended. No hepatosplenomegaly. EXTREMITIES: No clubbing, cyanosis, or edema. NEUROLOGIC: Grossly intact throughout. SKIN: Shows no obvious lesions, bruising or jaundice. LABORATORY DATA: His labs are pending. Chest x-ray shows hyperinflation without evidence of mass, effusion, or infiltrate. ASSESSMENT: 1. Chronic obstructive pulmonary disease with exacerbation. 2. Acute on chronic respiratory failure. 3. History of atypical mycobacterial infection. PLAN: Agree with steroids, breathing treatments. I will go ahead and add antibiotics. We will await his lab results. He will be started on enoxaparin for DVT prophylaxis and Protonix for GI prophylaxis. 70 min time spent on consult. Of that time > 50% spent with patient and/or on the patient's floor MTDD
[2018-03-07 14:50] LABS: #Eosinphils 0.1 thou/uL (0.0-0.7); #Lymphocytes 0.9 thou/uL (1.20-3.40); #Monocytes 0.9 thou/uL (0.11-0.59); %Basophils 0.3 % (0.0-1.0); %Eosinophils 0.7 % (0.0-10.0); %Lymphocytes 6.5 % (21.0-51.0); %Monocytes 6.1 % (0.0-10.0); %Neutrophils 86.4 % (42.0-75.0); Mean Corpuscular HGB CONC 31.3 g/dL (32.0-36.0); Mean Corpuscular Hemoglobin 28.5 pg (27.0-31.0); Mean Platelet Volume 6.6 fL (7.4-10.4); Platelet Count 408 thou/uL (130-400); RBC Distribution Width 13.8 % (11.5-14.5); Red Blood Cell (RBC) Count 3.17 mill/uL (4.70-6.10); White Blood Cell (WBC) Count 13.9 thou/uL (4.8-10.8)
[2018-03-07] MEDS: Cyclobenzaprine 10 MG TAB PO SCH ×2 (15:05→21:00)
[2018-03-07 15:13] LABS: ALT (SGPT) 20 U/L (8-55); AST (SGOT) 55 U/L (5-34); Albumin 3.5 g/dL (3.4-4.8); Alkaline Phosphatase 91 U/L (40-150); Anion Gap 16 mmol/L (10-20); BUN (Urea Nitrogen) 21 mg/dL (8.4-25.7); Bilirubin, Total 0.4 mg/dL (0.2-1.2); Calc. Creatinine Clearance 49 mL/min (70-130); Calcium 9.6 mg/dL (7.8-10.44); Carbon Dioxide 23 mmol/L (23-31); Chloride 103 mmol/L (98-107); Estimated GFR-MDRD 90; Globulin 3.7 g/dL (2.4-3.5); Glucose 94 mg/dL (83-110); Potassium 3.4 mmol/L (3.5-5.1); Protein, Total 7.2 g/dL (5.8-8.1); Sodium 139 mmol/L (136-145)
[2018-03-07] MEDS: traMADol HCl 50 MG TAB PO PRN ×2 (15:15→21:01)
[2018-03-07] MEDS: methylPREDNISolone Sod Succ/PF 125 MG/2 ML VIAL IVP SCH ×2 (15:15→23:59)
[2018-03-07] MEDS: cefTRIAXone\\ROCEPHIN 2 GM in Sodium Chloride 0.9% 100 ML IVPB SCH (15:15)
--- NOTE | 2018-03-07 15:18 | RAD ---
CHEST PA AND LATERAL TWO VIEWS: History: 72-year-old male with COPD exacerbation. Comparison: 12-02-17 FINDINGS: There is some bilateral hyperinflation with some biapical pleural thickening and some linear and pare nchymal changes in the upper lung zones with minimal upper lobe volume loss. Heart size is within nor mal limits. Mild linear stranding in the bases. IMPRESSION: Bilateral mostly upper lobe scarring and minimal volume loss, evidence for bilateral chronic lung prateek nges. Old granulomatous disease. Atherosclerosis of the aorta with ectasia. No confluent pneumonia, o vert edema, pleural effusion or other acute process. POS: [facility]
[2018-03-07] MEDS: Azithromycin 250 MG, Admixture Fee 1 EACH in Sodium Chloride 0.9% 250 ML 250 ML IVPB SCH (15:58)
[2018-03-07] MEDS: chlordiazePOXIDE/Clidinium Bromide Capsule PO SCH ×2 (16:02→21:05)
[2018-03-07 18:01] LABS: Bilirubin Negative (Negative); Blood, Urine Negative (Negative); Clarity CLEAR (Clear); Glucose, Urine (Dipstick) Negative (Negative); Leukocyte Negative (Negative); Nitrite Negative (Negative); Protein, Urine (Dipstick) Trace mg/dL (Neg-Trace); Specific Gravity, Urine 1.016 (1.002-1.036); Urobilinogen 0.2 mg/dL (0.2-1.0); pH, Urine 5.5 (5.0-9.0)
[2018-03-07] MEDS: Budesonide 0.5 MG/2 ML NEB NEB SCH (18:52)
[2018-03-07] MEDS: Megestrol Acetate 800 MG/20 ML UDCUP PO SCH (21:00)
[2018-03-08] MEDS: Acetylcysteine 20% 200 MG/ML 30 ML VIAL INH SCH ×4 (02:22→18:46)
[2018-03-08] MEDS: traMADol HCl 50 MG TAB PO PRN ×2 (05:57→13:53)
[2018-03-08] MEDS: methylPREDNISolone Sod Succ/PF 125 MG/2 ML VIAL IVP SCH ×4 (05:58→23:31)
[2018-03-08] MEDS: Budesonide 0.5 MG/2 ML NEB NEB SCH ×2 (07:56→18:41)
--- NOTE | 2018-03-08 08:51 | PRG ---
DATE OF SERVICE: 03/08/2018 He feels better, had no complaints. PHYSICAL EXAMINATION: VITAL SIGNS: Temperature 97.0, pulse 93, respirations 20, O2 sat 95% on 2 liters. HEENT: Unremarkable. NECK: No JVD. CHEST: Clear with no wheezing noted today. CARDIAC: S1 and S2 regular. ABDOMEN: Soft. EXTREMITIES: No edema. ASSESSMENT: Chronic obstructive pulmonary disease exacerbation. PLAN: I would recommend continuing his IV steroids, nebulization treatments and antibiotics over weekend. He has terrible COPD and he is always slow to improve and I do not see any way that he co uld go home today.
[2018-03-08] MEDS: Enoxaparin Sodium 40 MG/0.4 ML SYRINGE SC SCH (08:53)
[2018-03-08] MEDS: Megestrol Acetate 800 MG/20 ML UDCUP PO SCH ×2 (08:53→20:27)
[2018-03-08] MEDS: Cyclobenzaprine 10 MG TAB PO SCH ×3 (08:54→20:27)
[2018-03-08] MEDS: Amlodipine 5 MG TAB PO SCH (08:54)
[2018-03-08] MEDS: chlordiazePOXIDE/Clidinium Bromide Capsule PO SCH ×3 (11:17→20:27)
[2018-03-08] MEDS: Bisoprolol Fumarate/HCTZ 10 mg/6.25 mg Tablet PO SCH (11:17)
[2018-03-08] MEDS: cefTRIAXone\\ROCEPHIN 2 GM in Sodium Chloride 0.9% 100 ML IVPB SCH (15:00)
[2018-03-08] MEDS: Azithromycin 250 MG, Admixture Fee 1 EACH in Sodium Chloride 0.9% 250 ML 250 ML IVPB SCH (15:36)
[2018-03-09 05:30] LABS: #Lymphocytes 0.6 thou/uL (1.20-3.40); #Monocytes 0.3 thou/uL (0.11-0.59); #Neutrophils 14.4 thou/uL (1.40-6.50); %Eosinophils 0.1 % (0.0-10.0); %Lymphocytes 4.2 % (21.0-51.0); %Monocytes 2.1 % (0.0-10.0); %Neutrophils 93.7 % (42.0-75.0); Hemoglobin 8.5 g/dL (14.0-18.0); Mean Corpuscular HGB CONC 31.5 g/dL (32.0-36.0); Mean Corpuscular Hemoglobin 28.5 pg (27.0-31.0); Mean Corpuscular Volume 90.5 fl (80.0-94.0); Mean Platelet Volume 7.2 fL (7.4-10.4); Platelet Count 402 thou/uL (130-400); White Blood Cell (WBC) Count 15.3 thou/uL (4.8-10.8)
[2018-03-09] MEDS: methylPREDNISolone Sod Succ/PF 125 MG/2 ML VIAL IVP SCH ×2 (05:34→15:30)
[2018-03-09 05:54] LABS: Anion Gap 12 mmol/L (10-20); BUN (Urea Nitrogen) 29 mg/dL (8.4-25.7); Calc. Creatinine Clearance 33 mL/min (70-130); Calcium 9.3 mg/dL (7.8-10.44); Carbon Dioxide 29 mmol/L (23-31); Chloride 101 mmol/L (98-107); Estimated GFR-MDRD 57; Glucose 156 mg/dL (83-110); Potassium 3.8 mmol/L (3.5-5.1); Sodium 138 mmol/L (136-145)
[2018-03-09] MEDS: Budesonide 0.5 MG/2 ML NEB NEB SCH ×2 (05:55→18:54)
[2018-03-09] MEDS: Acetylcysteine 20% 200 MG/ML 30 ML VIAL INH SCH ×3 (05:57→18:53)
[2018-03-09] MEDS: Megestrol Acetate 800 MG/20 ML UDCUP PO SCH ×2 (09:01→21:01)
[2018-03-09] MEDS: Enoxaparin Sodium 40 MG/0.4 ML SYRINGE SC SCH (09:01)
[2018-03-09] MEDS: Cyclobenzaprine 10 MG TAB PO SCH ×2 (09:01→16:33)
[2018-03-09] MEDS: Amlodipine 5 MG TAB PO SCH (09:01)
[2018-03-09] MEDS: chlordiazePOXIDE/Clidinium Bromide Capsule PO SCH ×2 (09:02→16:33)
[2018-03-09] MEDS: Bisoprolol Fumarate/HCTZ 10 mg/6.25 mg Tablet PO SCH (09:42)
[2018-03-09] MEDS: cefTRIAXone\\ROCEPHIN 2 GM in Sodium Chloride 0.9% 100 ML IVPB SCH (15:46)
--- NOTE | 2018-03-09 16:14 | PDOC.PN ---
- Subjective Encounter Start Date: 03/09/18 Encounter Start Time: 16:15 Subjective: f/u for COPD exacerbation on Solumedrol, Duonebs, Rocephin, Zithromax -: Mucomyst. c/o of sedation and pt sleeping all the time. Confusion -: also noted. Apparently rx Librax in the last week. - Objective MAR Reviewed: Yes Vital Signs & Weight: Vital Signs (12 hours) Temp Pulse Resp BP BP BP Pulse Ox 03/09/18 13:33 110 H 20 97 03/09/18 11:30 97.8 F 102 H 16 113/70 03/09/18 09:30 112 H 20 97 03/09/18 09:01 112 H 125/60 03/09/18 08:00 97.6 F 112 H 20 125/60 97 03/09/18 07:25 97.6 F 112 H 20 125/60 97 03/09/18 05:55 102 H 18 95 Weight Weight 114 lb 12.8 oz I&O: 03/08/18 03/09/18 03/10/18 06:59 06:59 06:59 Intake Total 1196 1550 Output Total 425 Balance 771 1550 Result Diagrams: 03/09/18 03:52 03/09/18 03:51 Additional Labs: Laboratory Tests 03/07/18 03/07/18 14:40 14:40 WBC 13.9 H Hgb 9.0 L Plt Count 408 H Potassium 3.4 L Creatinine 0.98 Radiology Reviewed by me: Yes (PCXR - chronic changes bilat) Phys Exam - Physical Examination sedate, opens eyes to name, falls asleep during conversation HEENT: PERRLA, moist MMs, sclera anicteric, oral pharynx no lesions Neck: no nodes, no JVD, supple, full ROM decreased sounds in bases, prolonged exp phase Respiratory: no wheezing, no rhonchi Cardiovascular: RRR, no significant murmur, no rub, gallop Gastrointestinal: soft, non-tender, no distention, positive bowel sounds Musculoskeletal: no edema, pulses present Neurological: non-focal, moves all 4 limbs sedate, opens eyes to name, A x O x 2 Skin: no rash, normal turgor, cap refill <2 seconds Dx/Plan (1) Acute and chronic respiratory failure with hypoxia Code(s): J96.21 - ACUTE AND CHRONIC RESPIRATORY FAILURE WITH HYPOXIA Status: Acute Comment: continue supportive mgmt as outlined in #2, see below (2) Chronic obstructive pulmonary disease with acute exacerbation Code(s): J44.1 - CHRONIC OBSTRUCTIVE PULMONARY DISEASE W (ACUTE) EXACERBATION Status: Acute Comment: Continue Duonebs, Rocephin, Zithromax, Solumedrol, O2 supplementation (3) CHRIS (acute kidney injury) Code(s): N17.9 - ACUTE KIDNEY FAILURE, UNSPECIFIED Status: Acute Comment: Avoid nephrotoxic meds and contrast media, serial creatinine (4) Encephalopathy acute Code(s): G93.40 - ENCEPHALOPATHY, UNSPECIFIED Status: Acute Comment: Iatrogenic, d/c Librax and Flexeril, supportive, monitor clinical response - Plan plan discussed w/ family, continue antibiotics, PT/OT, geriatric social worker, respiratory therapy, out of bed/ambulate, DVT proph w/SCDs D/C Flexeril and Librax due to oversedation -: Trial of BiPAP for hypercapnia per Pulmonology -: Continue Duonebs, Solumedrol, Rocephin and Zithromax -: Continue IV NS @ 50ml/h -: AM lab: BMP, CBC, Mg++, TSH * .
--- NOTE | 2018-03-09 16:15 | PRG ---
DATE OF SERVICE: 03/09/2018 SERVICE: Pulmonary Medicine. INTERVAL HISTORY: This is the first time I am meeting this patient. I have no basis for comparison. That being said, he has a sick look about him. He has got a glassy appearance. He is answering in 1 or 2 word sentences. He has some respiratory distress and is using accessory muscles with a very prolonged expiratory phase. That being said, he denies having any discomforts. For lack of better word, he just has an encephalopathic appearance. Otherwise, there are apparently no events overnight. The is concerned that he is not currently at his baseline mentation. PHYSICAL EXAMINATION: VITAL SIGNS: Afebrile, pulse 102, blood pressure 113/70, respirations 16, saturation 97% on 3 liters nasal cannula. GENERAL: The patient is awake, alert. Patient is a touch somnolent but appropriate. He is in mild to moderate respiratory distress. HEENT: Normocephalic, atraumatic. Sclerae are white, conjunctivae pink. Oral mucosa is moist without lesions. LUNGS: He is moving almost no air. He has a prolonged expiratory phase. No wheezing, rhonchi, or crackles are appreciated. There was not moving enough air to appreciate adventitious sounds. HEART: Tachycardic. Regular. ABDOMEN: Soft. Distended. Bowel sounds are hypoactive. GENITOURINARY: No [place]. NEUROLOGIC: Grossly nonfocal. MUSCULOSKELETAL: No cyanosis or clubbing. There is no pitting in the bilateral lower extremities. LABORATORY DATA: WBC 15.3, hemoglobin 8.5, platelets 402,000. Neutrophil count is 93%. Creatinine 1.46 and significantly up trending. Potassium 3.8. Urinalysis is unremarkable. IMAGING: Chest x-ray demonstrates hyperexpansion of bilateral lung cedeno. The bi-apical scarring is evident. There are no pleural effusions or overt consolidation identified, however. ASSESSMENT: 1. Chronic obstructive pulmonary disease with acute exacerbation. 2. Acute on chronic hypoxic respiratory failure. 3. Metabolic encephalopathy from benzodiazepine and muscle relaxers. 4. History of Mycobacterium avium complex infection requiring a long course of antibiotic therapy. 5. Acute kidney injury. PLAN: We will continue our antibiotics, nebulized medications and steroids. We will introduce a touch of free water. Pulmonary Critical Care will continue to follow along for the time being. I am going to get an ABG to make certain he is not encephalopathic from hypercapnia. Pulmonary Critical Care will continue to follow closely. MISTY
[2018-03-09 16:17] LABS: Actual Bicarbonate (HCO3a) 29.7 mEq/L (22-26); Base Excess (BEa) 3.2 mEq/L (0 (+/-) 2.5); CO2 Tension 57.4 mmHg (35.0-45.0); O2 Tension (PaO2) 57.8 mmHg (80.0-100.0); pH, Arterial 7.33 (7.35-7.45)
[2018-03-09 16:18] LABS: Calcium, Ionized 1.2 mmol/L (1.12-1.30); Puncture Site LRA
[2018-03-09] MEDS: Sodium Chloride 0.45% 1,000 ML IV SCH (17:30)
[2018-03-09] MEDS: Azithromycin 250 MG, Admixture Fee 1 EACH in Sodium Chloride 0.9% 250 ML 250 ML IVPB SCH (17:32)
[2018-03-10 05:49] LABS: Band 10 % (5-11); Hemoglobin 8.7 g/dL (14.0-18.0); Lymphocytes 8 % (21-51); MDiff Complete? YES; Mean Corpuscular HGB CONC 30.2 g/dL (32.0-36.0); Mean Corpuscular Hemoglobin 27.2 pg (27.0-31.0); Mean Corpuscular Volume 90.2 fl (80.0-94.0); Monocytes 1 % (0-10); Neutrophil 81 % (42-75); Platelet Count 442 thou/uL (130-400); White Blood Cell (WBC) Count 16.1 thou/uL (4.8-10.8)
[2018-03-10 05:57] LABS: Anion Gap 10 mmol/L (10-20); BUN (Urea Nitrogen) 27 mg/dL (8.4-25.7); Calc. Creatinine Clearance 53 mL/min (70-130); Calcium 9.3 mg/dL (7.8-10.44); Carbon Dioxide 29 mmol/L (23-31); Chloride 102 mmol/L (98-107); Estimated GFR-MDRD Greater than 90; Glucose 130 mg/dL (83-110); Magnesium 2.1 mg/dL (1.6-2.6); Potassium 3.9 mmol/L (3.5-5.1); Sodium 137 mmol/L (136-145)
[2018-03-10] MEDS: Budesonide 0.5 MG/2 ML NEB NEB SCH ×2 (08:33→19:04)
[2018-03-10] MEDS: Acetylcysteine 20% 200 MG/ML 30 ML VIAL INH SCH ×2 (08:45→19:04)
[2018-03-10] MEDS ORDERED: Ketorolac Tromethamine 30 MG/ML VIAL IVP PRN (09:43)
[2018-03-10] MEDS: Bisoprolol Fumarate/HCTZ 10 mg/6.25 mg Tablet PO SCH (09:45)
[2018-03-10] MEDS: Amlodipine 5 MG TAB PO SCH (09:45)
[2018-03-10] MEDS: Enoxaparin Sodium 40 MG/0.4 ML SYRINGE SC SCH (09:45)
[2018-03-10] MEDS: Acetaminophen 500 MG TAB PO PRN ×2 (10:31→18:33)
[2018-03-10] MEDS: Megestrol Acetate 800 MG/20 ML UDCUP PO SCH ×2 (10:32→20:31)
[2018-03-10] MEDS: Sodium Chloride 0.45% 1,000 ML IV SCH (13:39)
--- NOTE | 2018-03-10 13:40 | PDOC.PN ---
- Subjective Encounter Start Date: 03/10/18 Encounter Start Time: 13:35 Subjective: f/u for COPD exacerbation and encephalopathy. Feels more awake today but -: some hallucinations. Appetite improved. Used nocturnal BiPAP. - Objective MAR Reviewed: Yes Vital Signs & Weight: Vital Signs (12 hours) Temp Pulse Resp BP BP Pulse Ox 03/10/18 11:39 97.9 F 93 23 H 112/80 97 03/10/18 11:24 100 03/10/18 11:23 93 12 03/10/18 09:45 94 03/10/18 08:34 94 03/10/18 08:00 98.1 F 94 20 98 03/10/18 07:25 98.1 F 96 20 138/67 100 03/10/18 04:00 97.6 F 92 22 H 122/72 100 03/10/18 02:39 96 03/10/18 02:25 95 20 97 Weight Weight 120 lb 2.431 oz I&O: 03/09/18 03/10/18 03/11/18 06:59 06:59 06:59 Intake Total 1550 950 240 Output Total 810 Balance 1550 140 240 Result Diagrams: 03/10/18 04:38 03/10/18 04:38 Additional Labs: Accuchecks 03/10/18 04:27 POC Glucose 142 H Laboratory Tests 03/07/18 03/07/18 03/09/18 14:40 14:40 03:51 WBC 13.9 H Hgb 9.0 L Plt Count 408 H Potassium 3.4 L BUN 29 H Creatinine 0.98 1.46 H TSH 3rd Generation 03/09/18 03/10/18 03:52 04:38 WBC 15.3 H Hgb 8.5 L Plt Count 402 H Potassium BUN Creatinine TSH 3rd Generation 0.4302 EKG Reviewed by me: Yes (Tele - SR in 90's) Phys Exam - Physical Examination alert, talks in 1-3 word sentences HEENT: PERRLA, moist MMs, sclera anicteric, oral pharynx no lesions Neck: no nodes, no JVD, supple prolonged exp phase, exp wheezes diminished flow in bases Respiratory: no rales, no rhonchi S1, S2 Cardiovascular: RRR, no significant murmur, no rub, gallop Gastrointestinal: soft, non-tender, no distention, positive bowel sounds Musculoskeletal: no edema, pulses present Neurological: normal sensation, moves all 4 limbs A x O x 2 Skin: no rash, normal turgor, cap refill <2 seconds Dx/Plan (1) Acute and chronic respiratory failure with hypoxia Code(s): J96.21 - ACUTE AND CHRONIC RESPIRATORY FAILURE WITH HYPOXIA Status: Acute Comment: continue supportive mgmt as outlined in #2, see below, appears near baseline (2) Chronic obstructive pulmonary disease with acute exacerbation Code(s): J44.1 - CHRONIC OBSTRUCTIVE PULMONARY DISEASE W (ACUTE) EXACERBATION Status: Acute Comment: Continue Duonebs, Rocephin, Zithromax, Solumedrol, O2 supplementation (3) CHRIS (acute kidney injury) Code(s): N17.9 - ACUTE KIDNEY FAILURE, UNSPECIFIED Status: Acute Comment: Avoid nephrotoxic meds and contrast media, serial creatinine, continue IVF NS 50ml/h (4) Encephalopathy acute Code(s): G93.40 - ENCEPHALOPATHY, UNSPECIFIED Status: Acute Comment: Iatrogenic, d/c Librax and Flexeril, supportive, monitor clinical response, improved with avoidance of psychotropic medications, minimize pain meds - Plan plan discussed w/ family, continue antibiotics, PT/OT, social work job titles, respiratory therapy, out of bed/ambulate, DVT proph w/SCDs Stable overall -: Saline lock IVF -: Avoid Benzodiazepines, Ultram and Narcotics -: OOB as tolerated -: Nocturnal BiPAP * Continue Rocephin and Zithromax * Toradol IV for pain control
[2018-03-10] MEDS ORDERED: Lorazepam 2 MG/ML VIAL SLOW IVP PRN (13:43)
[2018-03-10] MEDS ORDERED: Furosemide 40 MG/4 ML VIAL SLOW IVP SCH (13:45)
--- NOTE | 2018-03-10 14:08 | PRG ---
DATE OF SERVICE: 03/10/2018 SERVICE: Pulmonary Medicine. INTERVAL HISTORY: The patient is more alert this morning. The effects of the benzodiazepine startin g to wear out of his system. That being said, he had some discomfort last night. He got a dose of U ltram. After this, he became extraordinarily combative. He got very disoriented. He currently greg es any fevers, chills, nausea or vomiting. He indicates he is breathing comfortably though he was us ing accessory muscles and has tachypnea. Otherwise, there has been no interval change to his conditi on. He used the BiPAP on and off last night to good effect. PHYSICAL EXAMINATION: VITAL SIGNS: Afebrile, pulse 93, blood pressure 112/80, respirations 23, saturation 97% on 3 liters nasal cannula. GENERAL: The patient is awake, alert, no apparent distress. LUNGS: Decreased air entry. There is dependent crackles which are minimal. After breathing treatme nts, wheezing is elicited. HEART: Normal rate and regular. ABDOMEN: Soft, nontender, and nondistended. Bowel sounds are positive. MUSCULOSKELETAL: No cyanosis or clubbing. There is trace to 1+ pitting in the bilateral lower extre mities. NEUROLOGIC: Grossly nonfocal. LABORATORY DATA: WBC 16.1, hemoglobin 8.7 and roughly stable, platelets 442,000. Neutrophil count i s 81% with 10% bands. A pH 7.33, pCO2 of 57. Basic metabolic profile is essentially unremarkable ot herwise. Magnesium 2.1. TSH 0.4. Urinalysis is unremarkable. ASSESSMENT: 1. Acute on chronic hypoxic respiratory failure. 2. Chronic hypercapnic respiratory failure. 3. Metabolic encephalopathy secondary to long-acting benzodiazepine. 4. Chronic obstructive pulmonary disease with acute exacerbation. 5. History of Mycobacterium avium complex infection requiring protracted antibiotic course. 6. Acute kidney injury, resolved. PLAN: The patient is minimally volume overloaded. I am going to give him a dose of Lasix today and start a p.o. dose on daily basis. IV fluids will be interrupted. We will try to interrupt any nephr otoxic agent. This will include NSAIDs. I will give him Ativan to be used on an as needed basis, bu t this will be an extraordinarily low dose. Pulmonary or Critical Care will continue to follow along . The patient's respiratory status is marginal at best. I will use the BiPAP on and off and increas ed breaks as tolerated, but for now, I would like for him to wear it at night.
[2018-03-10] MEDS: cefTRIAXone\\ROCEPHIN 2 GM in Sodium Chloride 0.9% 100 ML IVPB SCH (15:04)
[2018-03-10] MEDS: Azithromycin 250 MG, Admixture Fee 1 EACH in Sodium Chloride 0.9% 250 ML 250 ML IVPB SCH (15:05)
[2018-03-11] MEDS: Budesonide 0.5 MG/2 ML NEB NEB SCH ×2 (07:08→18:45)
[2018-03-11] MEDS: Acetylcysteine 20% 200 MG/ML 30 ML VIAL INH SCH ×2 (07:20→22:36)
[2018-03-11] MEDS: Furosemide 40 MG TAB PO SCH (08:38)
[2018-03-11] MEDS: Amlodipine 5 MG TAB PO SCH (08:38)
[2018-03-11] MEDS: Enoxaparin Sodium 40 MG/0.4 ML SYRINGE SC SCH (08:38)
[2018-03-11] MEDS: Megestrol Acetate 800 MG/20 ML UDCUP PO SCH ×2 (08:38→20:19)
[2018-03-11] MEDS: Bisoprolol Fumarate/HCTZ 10 mg/6.25 mg Tablet PO SCH (08:42)
--- NOTE | 2018-03-11 14:25 | PDOC.PN ---
- Subjective Encounter Start Date: 03/11/18 Encounter Start Time: 14:05 Subjective: f/u for acute/chronic hypoxic resp failure with nocturnal BiPAP and NC -: during the day. Feels better and less SOB today. More awake and interactive -: Appetite improved. - Objective MAR Reviewed: Yes Vital Signs & Weight: Vital Signs (12 hours) Temp Pulse Resp BP Pulse Ox 03/11/18 11:16 98.5 F 94 22 H 134/63 98 03/11/18 11:11 95 03/11/18 11:10 94 21 H 98 03/11/18 08:38 86 03/11/18 08:00 99.0 F 86 23 H 100 03/11/18 07:34 99.0 F 86 23 H 130/68 100 03/11/18 07:09 91 03/11/18 07:07 89 28 H 100 03/11/18 03:00 98.2 F 88 26 H 110/63 100 03/11/18 02:43 86 03/11/18 02:42 87 20 92 L Weight Weight 123 lb 0.287 oz I&O: 03/10/18 03/11/18 03/12/18 06:59 06:59 06:59 Intake Total 950 2567 360 Output Total 810 975 Balance 140 1592 360 Result Diagrams: 03/10/18 04:38 03/10/18 04:38 Additional Labs: Laboratory Tests 03/07/18 03/07/18 03/09/18 14:40 14:40 03:51 WBC 13.9 H Hgb 9.0 L Plt Count 408 H Potassium 3.4 L BUN 29 H Creatinine 0.98 1.46 H TSH 3rd Generation 03/09/18 03/10/18 03:52 04:38 WBC 15.3 H Hgb 8.5 L Plt Count 402 H Potassium BUN Creatinine TSH 3rd Generation 0.4302 EKG Reviewed by me: Yes (Tele - SR) Phys Exam - Physical Examination Constitutional: NAD alert, responds in 2-word phrases HEENT: PERRLA, moist MMs, sclera anicteric, oral pharynx no lesions Neck: no nodes, no JVD, supple, full ROM diminished in bilat cedeno, no wheezing accessory muscle use noted Respiratory: no rhonchi S1, S2 Cardiovascular: RRR, no significant murmur, no rub, gallop Gastrointestinal: soft, non-tender, no distention, positive bowel sounds Musculoskeletal: no edema, pulses present Neurological: non-focal, normal sensation, moves all 4 limbs Psychiatric: normal affect, A&O x 3 Skin: no rash, normal turgor, cap refill <2 seconds Dx/Plan (1) Acute and chronic respiratory failure with hypoxia Code(s): J96.21 - ACUTE AND CHRONIC RESPIRATORY FAILURE WITH HYPOXIA Status: Acute Comment: continue supportive mgmt as outlined in #2, see below, may need CPAP/BiPAP for home (2) Chronic obstructive pulmonary disease with acute exacerbation Code(s): J44.1 - CHRONIC OBSTRUCTIVE PULMONARY DISEASE W (ACUTE) EXACERBATION Status: Acute Comment: Continue Duonebs, start Omnicef 300mg BID, Solumedrol, O2 supplementation (3) CHRIS (acute kidney injury) Code(s): N17.9 - ACUTE KIDNEY FAILURE, UNSPECIFIED Status: Acute Comment: Avoid nephrotoxic meds and contrast media, serial creatinine, saline lock IVF's (4) Encephalopathy acute Code(s): G93.40 - ENCEPHALOPATHY, UNSPECIFIED Status: Acute Comment: Iatrogenic, d/c Librax and Flexeril, supportive, monitor clinical response, improved with avoidance of psychotropic medications, minimize pain meds - Plan continue antibiotics, PT/OT, social media intern, respiratory therapy, DVT proph w/ SCDs Continue supportive mgmt -: Consider Palliative care consult -: Continue Solumedrol -: Start Omnicef -: D/C Rocephin and Zithromax * Ensure TID * Nocturnal BiPAP
[2018-03-11] MEDS ORDERED: Cefdinir 300 MG CAP PO SCH (15:00)
--- NOTE | 2018-03-11 16:28 | PRG ---
DATE OF SERVICE: 03/11/2018 SUBJECTIVE: Mr. Fisher was off BiPAP for a while; this morning, and then back on it for now. He says he is feeling better. OBJECTIVE: VITAL SIGNS: He is afebrile, heart rate is 94, respiratory rate is 22, oximetry is 98, blood pressur e 134/63. LUNGS: Remarkable for distant breath sounds. HEART: Regular rhythm. ABDOMEN: Soft. LABORATORY DATA: No new lab today. IMPRESSION: 1. Chronic obstructive pulmonary disease exacerbation. 2. History of Mycobacterium avium. 3. Acute on chronic respiratory failure. PLAN: Continue p.r.n. BiPAP, nebulizer treatments, steroid dose probably can be decreased tomorrow. Overall, appears to be stable.
[2018-03-11] MEDS: Cefdinir 300 MG CAP PO SCH (20:19)
[2018-03-12] MEDS: Budesonide 0.5 MG/2 ML NEB NEB SCH ×2 (06:58→19:38)
[2018-03-12] MEDS: Acetylcysteine 20% 200 MG/ML 30 ML VIAL INH SCH ×2 (06:59→18:49)
--- NOTE | 2018-03-12 08:12 | PRG ---
DATE OF SERVICE: 03/12/2018 SUBJECTIVE: The patient had a good night. He was on BiPAP until 2 this morning, he is on oxygen now . He is eating. He feels okay. He has not gotten out of bed yet. PHYSICAL EXAMINATION: GENERAL: He is awake, alert to person, place and time. VITAL SIGNS: Blood pressure is 120/60, pulse 90, respiration 20. He is afebrile. NECK: Supple. No JVP, carotid bruit. Carotid had good upstroke, no thyromegaly. COR: Regular rate and rhythm. CHEST: Symmetrical, decreased breath sounds bilaterally. He had a few upper lobe wheezing. ABDOMEN: Soft, nontender, normal bowel sounds. No bruit or organomegaly. EXTREMITIES: No edema or cyanosis. Palpable pedal pulses. SKIN: There is no evidence of ulcers, lesion or rash. NEUROLOGIC: He is awake, alert, and oriented to person, place, and time. LABORATORY DATA: There is no lab in the chart. There is no chest x-ray in the chart as well. ASSESSMENT: 1. Chronic obstructive pulmonary disease exacerbation. 2. Respiratory failure. PLAN: Dr. Parker is following the patient. So when okay can move to medical. We will ask Physical Therapy to see the patient in consultation. We will also follow up with chest x-ray and CBC and CMP in the morning. The patient and verbalized understanding. All questions answered to their sat isfaction.
[2018-03-12] MEDS: Furosemide 40 MG TAB PO SCH (08:14)
--- NOTE | 2018-03-12 08:44 | PRG ---
DATE OF SERVICE: 03/12/2018 SUBJECTIVE: The patient is currently in the Intermediate Care Unit. He decompensated over the weeke nd. He is continuing to require BiPAP intermittently during the day, but is off at the current time and eating breakfast. OBJECTIVE: VITAL SIGNS: On exam, temperature is 98.3, pulse 87, respiratory rate 24, O2 sat is ranging from the low to mid 90s on 2 liters nasal cannula. GENERAL: He appears tachypneic. He is not speaking much. HEENT: Unremarkable. NECK: No JVD. LUNGS: Distant breath sounds, no wheezing. CARDIAC: S1 and S2, regular. ABDOMEN: Soft, nontender, nondistended. EXTREMITIES: Severe muscle wasting. LABORATORY DATA: White blood cell count 16, hematocrit 28, platelet count 442. Sodium 137, BUN 27, creatinine 0.9. ASSESSMENT: 1. End-stage chronic obstructive pulmonary disease. 2. Chronic respiratory failure. PLAN: 1. Go ahead and stop the Lasix. 2. Continue nebulization treatments. 3. Continue IV steroids. 4. Continue antibiotics. I have asked one local respiratory therapist to come and evaluate him for the potential of a Trilogy ventilator. The patient has chronic respiratory failure secondary to chronic obstructive pulmonary d isease with CO2 elevation greater than 50. He would benefit from Trilogy ventilator support at night .
[2018-03-12] MEDS: Bisoprolol Fumarate/HCTZ 10 mg/6.25 mg Tablet PO SCH (09:27)
[2018-03-12] MEDS: Amlodipine 5 MG TAB PO SCH (09:28)
[2018-03-12] MEDS: Cefdinir 300 MG CAP PO SCH ×2 (09:28→21:06)
[2018-03-12] MEDS: Enoxaparin Sodium 40 MG/0.4 ML SYRINGE SC SCH (09:29)
[2018-03-12] MEDS: Megestrol Acetate 800 MG/20 ML UDCUP PO SCH ×2 (09:29→21:06)
[2018-03-13 04:40] LABS: ALT (SGPT) 23 U/L (8-55); AST (SGOT) 18 U/L (5-34); Albumin 2.9 g/dL (3.4-4.8); Alkaline Phosphatase 70 U/L (40-150); BUN (Urea Nitrogen) 31 mg/dL (8.4-25.7); Bilirubin, Total 0.3 mg/dL (0.2-1.2); Calc. Creatinine Clearance 54 mL/min (70-130); Calcium 8.9 mg/dL (7.8-10.44); Estimated GFR-MDRD Greater than 90; Globulin 2.7 g/dL (2.4-3.5); Glucose 152 mg/dL (83-110); Protein, Total 5.6 g/dL (5.8-8.1)
[2018-03-13 04:49] LABS: Anion Gap 11 mmol/L (10-20); Carbon Dioxide 37 mmol/L (23-31); Chloride 96 mmol/L (98-107); Potassium 3.2 mmol/L (3.5-5.1); Sodium 141 mmol/L (136-145)
[2018-03-13 05:10] LABS: Band 1 % (5-11); Lymphocytes 8 % (21-51); MDiff Complete? YES; Mean Corpuscular HGB CONC 31.1 g/dL (32.0-36.0); Mean Corpuscular Volume 90.1 fl (80.0-94.0); Monocytes 4 % (0-10); Myelocyte 1 % (0-0); Neutrophil 86 % (42-75); PLT Morphology Comment Appears Increased; Platelet Count 443 thou/uL (130-400); RBC Distribution Width 14.3 % (11.5-14.5); Red Blood Cell (RBC) Count 3.57 mill/uL (4.70-6.10); White Blood Cell (WBC) Count 15.2 thou/uL (4.8-10.8)
--- NOTE | 2018-03-13 08:07 | PRG ---
DATE OF SERVICE: 02/14/2018 He wore the BiPAP last night. He feels a little better this morning. He tells me his had to go to the ER last night. PHYSICAL EXAMINATION: VITAL SIGNS: Temperature 97.7, pulse 89, respirations 13, O2 sat 99% on 1 liter, blood pressure 143/ 77. GENERAL: He appears dyspneic and is using accessory abdominal muscles of respiration. HEENT: Showed some mild bitemporal wasting. NECK: No JVD. LUNGS: Clear but distant breath sounds. CARDIAC: S1 and S2 regular. ABDOMEN: Soft. EXTREMITIES: Muscle wasting, but no edema. LABORATORY DATA: White blood cell count 15.2, hematocrit 32.2, platelet count 443. Sodium 141, pota ssium 3.2, chloride 96, CO2 37, BUN 31, creatinine 0.9, glucose 152. ASSESSMENT: 1. Chronic obstructive pulmonary disease. 2. Chronic hypercapnic respiratory failure requiring noninvasive ventilation. 3. Deconditioning. PLAN: 1. I am ordering volume ventilation for nocturnal and as needed daytime use, traditional home BiPAP is insufficient. COPD is the primary cause of the patient's chronic respiratory failure. He will th erefore be put on a Trilogy home ventilator machine. 2. Continue steroids, nebulization therapy. 3. Continue noninvasive ventilation in the hospital until we are able to acquire the Trilogy ventila tor for the patient's home use. 4. I stopped the diuretics yesterday. 5. I will go down on the steroid dose today. 6. Replace potassium.
[2018-03-13] MEDS: Budesonide 0.5 MG/2 ML NEB NEB SCH ×2 (08:12→18:15)
[2018-03-13] MEDS: Enoxaparin Sodium 40 MG/0.4 ML SYRINGE SC SCH (09:03)
[2018-03-13] MEDS: Potassium Chloride 20 MEQ TAB PO SCH ×2 (09:04→17:11)
[2018-03-13] MEDS: Megestrol Acetate 800 MG/20 ML UDCUP PO SCH ×2 (09:04→20:51)
[2018-03-13] MEDS: Bisoprolol Fumarate/HCTZ 10 mg/6.25 mg Tablet PO SCH (09:04)
[2018-03-13] MEDS: Cefdinir 300 MG CAP PO SCH ×2 (09:04→20:51)
[2018-03-13] MEDS: Amlodipine 5 MG TAB PO SCH (09:09)
--- NOTE | 2018-03-13 10:10 | RAD ---
PORTABLE CHEST: HISTORY: COPD. COMPARISON: 03/07/18. FINDINGS: No confluent infiltrate. Blunting of the right CP angle suggests small effusion. Interstitial clayton ngs appear chronic. Vascular markings within normal range. Aortic calcification is noted. IMPRESSION: Question small right effusion. Chronic lung changes without evidence of focal infiltrate. POS: [facility]
[2018-03-13] MEDS: Acetylcysteine 20% 200 MG/ML 30 ML VIAL INH SCH ×2 (13:04→18:16)
[2018-03-14 04:31] LABS: Anion Gap 8 mmol/L (10-20); BUN (Urea Nitrogen) 26 mg/dL (8.4-25.7); Calc. Creatinine Clearance 56 mL/min (70-130); Calcium 8.9 mg/dL (7.8-10.44); Carbon Dioxide 37 mmol/L (23-31); Chloride 98 mmol/L (98-107); Estimated GFR-MDRD Greater than 90; Glucose 143 mg/dL (83-110); Sodium 139 mmol/L (136-145)
[2018-03-14] MEDS: Acetaminophen 500 MG TAB PO PRN (05:04)
[2018-03-14] MEDS: Budesonide 0.5 MG/2 ML NEB NEB SCH (07:21)
[2018-03-14] MEDS: Acetylcysteine 20% 200 MG/ML 30 ML VIAL INH SCH (07:21)
[2018-03-14 07:58] VITALS: TEMP 97.9
--- NOTE | 2018-03-14 08:26 | PRG ---
DATE OF SERVICE: 03/14/2018 He says he wants to go home. He feels better. PHYSICAL EXAMINATION: VITAL SIGNS: Temperature is 97.9, pulse 80, respirations 14, O2 sat 100% on 1 liter, blood pressure 130/75. HEENT: Unremarkable. NECK: No JVD. LUNGS: Distant, but clear breath sounds. CARDIAC: S1 and S2 regular. ABDOMEN: Soft. EXTREMITIES: Severe muscle wasting. ASSESSMENT: 1. Chronic obstructive pulmonary disease with severe exacerbation. 2. Chronic hypoxic and hypercapnic respiratory failure. PLAN: 1. His Trilogy ventilator is being set up at home. I think he can go home as soon as that is finali zed: 2. I will go ahead and switch him to oral steroids. 3. Increase activity as tolerated.
[2018-03-14] MEDS: Amlodipine 5 MG TAB PO SCH (08:50)
[2018-03-14] MEDS: Potassium Chloride 20 MEQ TAB PO SCH (08:50)
[2018-03-14] MEDS: Cefdinir 300 MG CAP PO SCH (08:50)
[2018-03-14] MEDS: Megestrol Acetate 800 MG/20 ML UDCUP PO SCH (08:51)
[2018-03-14] MEDS: Enoxaparin Sodium 40 MG/0.4 ML SYRINGE SC SCH (08:52)
[2018-03-14] MEDS: Bisoprolol Fumarate/HCTZ 10 mg/6.25 mg Tablet PO SCH (08:52)
[2018-03-14] MEDS ORDERED: predniSONE 20 MG TAB PO SCH (09:00)
--- NOTE | 2018-03-14 09:33 | PRG ---
DATE OF SERVICE: 03/14/2018 SUBJECTIVE: The patient had a good night. He feels like he is breathing better, his at [facility]. Dr. Parker is arranging home BiPAP. child care worker will also be coming by today. He is also weaning his steroids. OBJECTIVE: GENERAL: Upon examination, he is awake, alert, and oriented. He is tachypneic upon evaluation, but better than yesterday. VITAL SIGNS: Blood pressure 138/75, pulse 80, respirations 16, he is afebrile. NECK: Supple with no increased JVP or carotid bruit. Carotid had good upstroke, no thyromegaly. COR: Regular rate and rhythm. CHEST: Decreased breath sounds bilaterally with upper lobe wheezing. ABDOMEN: Soft, nontender with normoactive bowel sounds. No bruit or organomegaly. EXTREMITIES: No edema or cyanosis. Palpable pedal pulses. SKIN: There is no evidence of ulcers, lesion, or rash. NEUROLOGIC: He is awake, alert, and oriented to person, place, and time. LABORATORY DATA: There is no lab in the chart. ASSESSMENT: 1. Chronic obstructive pulmonary disease exacerbation. 2. Chronic respiratory failure. 3. Multiple medical problems. PLAN: We will continue the same current medication regime; however, the patient's steroids are being weaning. We are also waiting for outreach and education social worker to arrange his home BiPAP. We appreciate Dr. Trevor bear's help and hopefully, the patient will be able to go home in the next few days. The patient verbal ized understanding. All questions answered to satisfaction.
[2018-03-14 14:04] VITALS: BP 145/56
== END 2018-03-14 13:21 | disposition home or self-care (01) | DRG 189 ==
LOC: OBSVTOIN 12:32 → EEVIPCON 12:32 → 2SW 12:32 → T4-A 03-08 14:49 → IMCU/EMU 03-09 17:01
PROVIDERS: ADMIT Specialist; ATTEND Specialist
PROC: 5A09357 Assistance with Respiratory Ventilation, Less than 24 Consecutive Hours, Continuous Positive Airway Pressure (ICD-10-PCS; principal; 2018-03-09)
DX: J96.21 Acute and chronic respiratory failure with hypoxia (principal); G92 Toxic encephalopathy; J44.1 Chronic obstructive pulmonary disease with (acute) exacerbation; N17.9 Acute kidney failure, unspecified; R64 Cachexia; Z68.1 Body mass index [BMI] 19.9 or less, adult; E78.5 Hyperlipidemia, unspecified; M19.90 Unspecified osteoarthritis, unspecified site; T42.4X5A Adverse effect of benzodiazepines, initial encounter; I11.0 Hypertensive heart disease with heart failure; I50.9 Heart failure, unspecified; T48.205A Adverse effect of unspecified drugs acting on muscles, initial encounter; K58.8 Other irritable bowel syndrome; K31.84 Gastroparesis; S16.1XXA Strain of muscle, fascia and tendon at neck level, initial encounter; X58.XXXA Exposure to other specified factors, initial encounter; Y92.9 Unspecified place or not applicable; Z87.891 Personal history of nicotine dependence; Z86.19 Personal history of other infectious and parasitic diseases; Z79.899 Other long term (current) drug therapy; Z90.79 Acquired absence of other genital organ(s); Z87.438 Personal history of other diseases of male genital organs
CPT/HCPCS: 36415; 36416; 71045; 71046; 80048; 80053; 81003; 82805; 83735; 84443; 85007; 85025; 85027; 94640; 94660; A4216; G8978-GP-CL; G8979-GP-CJ; J0456; J0696; J1650; J2930; J7050; J7608; J7620; J7626

== ENCOUNTER 2018-11-21 14:21 | Outpatient (CLI) | payer MEDICARE ==
--- NOTE | 2018-11-21 15:46 | RAD ---
PA AND LTERAL OF THE CHEST: INDICATION: History of pneumonia. COMPARISON: Prior exam dated 03/07/2018. FINDINGS: Chronic lung changes are stable. No confluent airspace opacity or pleural effusion is evident. Hear t size is within normal limits. There has been interval development of a compression abnormality inv olving the T6 through T9 vertebral levels. Bone scan may be helpful to evaluate acuity. IMPRESSION: 1. Stable chronic lung changes most consistent with chronic obstructive pulmonary disease. No defin ite acute airspace opacity or pleural effusion is evident. 2. New thoracic spine compression abnormalities since 03/07/2018. This involves the suspected T6 thr ough T9 vertebral levels. A whole body bone scan may be helpful to evaluate acute. POS: [facility]
== END 2018-11-21 14:22 | disposition home or self-care (01) ==
LOC: BICRAD 14:21
PROVIDERS: ATTEND Specialist
DX: J18.9 Pneumonia, unspecified organism (principal); J44.9 Chronic obstructive pulmonary disease, unspecified
CPT/HCPCS: 71046

== ENCOUNTER 2018-12-29 11:12 | Inpatient (IN) | payer MEDICARE ==
[2018-12-29] MEDS ORDERED: methylPREDNISolone Sod Succ/PF 125 MG/2 ML VIAL ONE (11:49)
[2018-12-29 12:14] LABS: #Eosinphils 0.1 thou/uL (0.0-0.7); #Lymphocytes 1.3 thou/uL (1.20-3.40); #Monocytes 1.1 thou/uL (0.11-0.59); #Neutrophils 9.9 thou/uL (1.40-6.50); %Basophils 0.2 % (0.0-1.0); %Eosinophils 0.8 % (0.0-10.0); %Lymphocytes 10.8 % (21.0-51.0); %Monocytes 8.4 % (0.0-10.0); %Neutrophils 79.8 % (42.0-75.0); Hemoglobin 10.4 g/dL (14.0-18.0); Mean Corpuscular HGB CONC 30.9 g/dL (32.0-36.0); Mean Corpuscular Hemoglobin 29.3 pg (27.0-31.0); Mean Corpuscular Volume 94.8 fL (78.0-98.0); Mean Platelet Volume 7.2 fL (7.4-10.4); Platelet Count 351 thou/uL (130-400); RBC Distribution Width 13.6 % (11.5-14.5); Red Blood Cell (RBC) Count 3.55 mill/uL (4.70-6.10); White Blood Cell (WBC) Count 12.4 thou/uL (4.8-10.8)
--- NOTE | 2018-12-29 12:30 | RAD ---
PORTABLE CHEST: Date: 12/29/18 HISTORY: Dyspnea. COMPARISON: 11/21/18. FINDINGS: The lungs appear clear. There are mild chronic parenchymal changes which are stable. No evidence of v ascular congestion. Heart size within normal range. Aortic calcifications again noted. IMPRESSION: Chronic changes are stable. No acute process. POS: [facility]
[2018-12-29 12:40] LABS: ALT (SGPT) 43 U/L (8-55); AST (SGOT) 51 U/L (5-34); Albumin 3.5 g/dL (3.4-4.8); Alkaline Phosphatase 77 U/L (40-150); Anion Gap 16 mmol/L (10-20); BUN (Urea Nitrogen) 20 mg/dL (8.4-25.7); Bilirubin, Total 0.2 mg/dL (0.2-1.2); Calc. Creatinine Clearance 0 mL/min (70-130); Calcium 9.1 mg/dL (7.8-10.44); Carbon Dioxide 26 mmol/L (23-31); Chloride 105 mmol/L (98-107); Estimated GFR-MDRD 85; Glucose 84 mg/dL (83-110); Potassium 5.4 mmol/L (3.5-5.1); Protein, Total 6.5 g/dL (5.8-8.1); Sodium 142 mmol/L (136-145)
[2018-12-29] MEDS ORDERED: methylPREDNISolone Sod Succ/PF 125 MG/2 ML VIAL IVP SCH ×2 (18:00→23:59)
[2018-12-29 18:49] LABS: Troponin I 0.022 ng/mL (< 0.028)
[2018-12-29] MEDS: Megestrol Acetate 40 MG TAB PO SCH (20:53)
[2018-12-29] MEDS: ALPRAZolam 1 MG TAB PO SCH (20:54)
[2018-12-29] MEDS: Acetaminophen/Codeine 30-300mg Tablet PO PRN (20:54)
[2018-12-29] MEDS: Latanoprost 0.005% Ophth Soln 2.5 ml Bottle EA EYE SCH (20:55)
[2018-12-29] MEDS: Brimonidine Tartrate 0.2% Ophth Soln 5 ml Bottle EA EYE SCH (20:56)
[2018-12-29] MEDS: methylPREDNISolone Sod Succ/PF 125 MG/2 ML VIAL IVP SCH (23:46)
--- NOTE | 2018-12-30 00:44 | HP ---
CHIEF COMPLAINT: Exacerbation of COPD. HISTORY OF PRESENT ILLNESS: The patient is a 73-year-old male who has had a recent exacerbation treated as an outpatient per Dr. Singh about 2 weeks ago. He required going on a prednisone bolus with taper. His notes that this particular episode started early this morning when he did not want any breakfast that is very unusual for him and she was alert to the fact from the rest of that day he became diaphoretic, more short winded and saying things that sounded out of his head. At which point, she brought him to the emergency room for further evaluation. He had already tried nebulizer treatments at home to help stop the wheezing that was persistent. No vomiting, diarrhea, or fever were noted, but the wheezing would not stop. He remained short winded until he came to the emergency room. Then in the ER, multiple treatments were needed to help break and stop the wheezing at which point, the patient became less diaphoretic and responsive and mentally correct. He is put in for further treatment and evaluation. Chest x-ray did not show any acute infectious process. PAST MEDICAL HISTORY: Significant for the aforementioned COPD stage IV, congestive heart failure, hypertension, generalized anxiety, insomnia, diffuse arthritis, and bilateral shoulder displacements. PAST SURGICAL HISTORY: Includes colon surgery and TURP. PAST PSYCHIATRIC HISTORY: Just aforementioned anxiety. SOCIAL HISTORY: Denies alcohol use. Has not smoked in many years, greater than 10 years. He denies illicit drug use. He is retired and , lives at home. ALLERGIES: ALLERGIES ARE TO TRAMADOL. CURRENT MEDICATIONS: Include; 1. Pulmicort 0.5 mg neb b.i.d. at home. 2. Levsin sublingually p.r.n. abdominal cramps. 3. Alprazolam 1 mg at bedtime for chronic insomnia. 4. Albuterol nebulizer solution for home use. 5. Prednisone 10 mg, recently completed a taper. 6. Ziac 10/6.25 mg once a day. 7. Protonix 40 mg p.o. daily. 8. Tylenol No. 3 q.4 hours for shoulder pain. 9. Megestrol 40 mg/mL, 1 teaspoon b.i.d. for anorexia. 10. He has several eye drops that he takes. 11. Diltiazem 240 mg once a day for cardiac arrhythmia and blood pressure. REVIEW OF SYSTEMS: At the time of admission, CONSTITUTIONAL: No fever or chills, but he has had some general malaise. HEENT: No trouble with blurred vision or eye pain or drainage. No drainage or pain from ears, nose, or throat. CARDIOVASCULAR: Denies palpitations or chest pain. RESPIRATORY: Has had shortness of breath and cough. GI: Denies nausea, vomiting, or diarrhea. : Denies dysuria, blood in urine or stool. MUSCULOSKELETAL: Has severe pain in bilateral shoulders. SKIN: No new rashes or lesions. NEUROLOGIC: He has been having altered mental status with slurred speech and nonsensical language. PHYSICAL EXAMINATION: VITAL SIGNS: On admission, blood pressure 140/70, pulse 77, respirations 26, temperature 98.2, pain is 7/10 in the shoulders, and O2 saturation 98% on room air after several neb treatments. GENERAL: This is a cachectic, thin, small-framed black male, currently alert, oriented, cooperative. HEENT: Normocephalic except for temporal wasting. TMs, nares, and pharynx are clear. Pupils are equal, round, and reactive to light with arcus senilis bilaterally. NECK: Supple. Trachea midline. CHEST: Generally diminished breath sounds in all lung cedeno, but no active wheezing at present. HEART: Regular rate and rhythm without murmur. ABDOMEN: Soft, nontender without organomegaly. : Deferred. EXTREMITIES: With muscular wasting in upper and lower extremities. SKIN: No acute lesions. NEUROLOGIC: Mental status is currently clear. Gait and cerebral function not tested. Sensory exam is intact. Mental status is baseline. LABORATORY DATA: Lab work thus far shows WBCs at 12.4, hemoglobin 10.4, hematocrit 33.7 with platelets at 351. Sodium 142, potassium 5.4, chloride 105, CO2 of 26, BUN 20, creatinine 0.3, GFR for 85. AST 51, other liver functions normal. Troponins are normal. Chest x-ray shows chronic changes, but no acute process. ASSESSMENT: 1. Exacerbation of chronic obstructive pulmonary disease. 2. Bilateral shoulder pain due to severe arthritis and disarticulation. 3. Chronic insomnia. 4. Anxiety. 5. Anorexia. PLAN: Scheduled DuoNeb treatments b.i.d. Pulmicort treatments. Pulmonology consultation. Serial re-evaluation. Continue steroid therapy ?Theophylline? Job ID: [id number]
[2018-12-30 05:30] LABS: Anion Gap 13 mmol/L (10-20); BUN (Urea Nitrogen) 21 mg/dL (8.4-25.7); Calc. Creatinine Clearance 49 mL/min (70-130); Calcium 9.1 mg/dL (7.8-10.44); Carbon Dioxide 28 mmol/L (23-31); Chloride 102 mmol/L (98-107); Estimated GFR-MDRD Greater than 90; Glucose 127 mg/dL (83-110); Potassium 5.8 mmol/L (3.5-5.1); Sodium 137 mmol/L (136-145)
[2018-12-30 05:43] LABS: #Eosinphils 0.1 thou/uL (0.0-0.7); #Lymphocytes 1.1 thou/uL (1.20-3.40); #Monocytes 0.3 thou/uL (0.11-0.59); #Neutrophils 9.5 thou/uL (1.40-6.50); %Basophils 0.1 % (0.0-1.0); %Eosinophils 0.8 % (0.0-10.0); %Lymphocytes 9.9 % (21.0-51.0); %Monocytes 2.4 % (0.0-10.0); %Neutrophils 86.8 % (42.0-75.0); Hemoglobin 10.1 g/dL (14.0-18.0); MDiff Complete? YES; Mean Corpuscular Hemoglobin 29.6 pg (27.0-31.0); Mean Corpuscular Volume 95.6 fL (78.0-98.0); Mean Platelet Volume 8.4 fL (7.4-10.4); Platelet Count 245 thou/uL (130-400); Platelet Morphology Comment Appears Adequate; RBC Distribution Width 13.5 % (11.5-14.5); Red Blood Cell (RBC) Count 3.39 mill/uL (4.70-6.10); White Blood Cell (WBC) Count 10.9 thou/uL (4.8-10.8)
[2018-12-30] MEDS: methylPREDNISolone Sod Succ/PF 125 MG/2 ML VIAL IVP SCH ×3 (06:11→19:14)
[2018-12-30] MEDS ORDERED: Budesonide 0.5 MG/2 ML NEB NEB SCH (06:30)
[2018-12-30] MEDS: Budesonide 0.5 MG/2 ML NEB NEB SCH ×2 (06:35→20:06)
[2018-12-30] MEDS ORDERED: diphenhydrAMINE 2% CREAM 28.4 GM TUBE TOP SCH (09:30)
[2018-12-30 09:45] LABS: Actual Bicarbonate (HCO3a) 30.9 mEq/L (22-28); Analyzer IN Cardio OR; Base Excess (BEa) 4.1 mEq/L (-2.0 to +3.0); CO2 Tension 57.9 mmHg (35.0-45.0); Calcium, Ionized 1.21 mmol/L (1.12-1.30); Carboxyhemoglobin (COHb) 0.3 gm% (0.0-3.0); Hemoglobin (Hb) 10.5 g/dL (14.0-18.0); O2 Tension (PaO2) 113.3 mmHg (> 70.0); Potassium - ABG Lab 4.67 mmol/L (3.70-5.30); pH, Arterial 7.35 (7.35-7.45)
[2018-12-30 09:53] LABS: ALV-art Gradient 42.485 (0-20); Puncture Site RRA
--- NOTE | 2018-12-30 10:12 | CON ---
DATE OF CONSULTATION: 12/30/2018 REASON FOR CONSULTATION: COPD exacerbation. TIME SPENT: The following encompassed 70 minutes of time, of that time, greater than 50% was spent with the patient and/or the patient's unit in the hospital. HISTORY OF PRESENT ILLNESS: Mr. Fisher is a 73-year-old male with very severe COPD, who was brought to the hospital last night because his said he was "talking out of his mind." He has been short of breath and wheezing. He received multiple nebulization treatments in the ER and was subsequently put on inpatient observation in [facility]. At the time of this dictation, blood gas had not been drawn. PAST MEDICAL HISTORY: 1. End-stage chronic obstructive pulmonary disease. 2. Congestive heart failure. 3. Hypertension. 4. Arthritis. 5. Hyperlipidemia. 6. Gastroparesis. PAST SURGICAL HISTORY: 1. History of colon surgery with significant complication afterwards. 2. Transurethral resection of prostate. SOCIAL HISTORY: Quit smoking about 16 years ago. Does not consume alcohol. Does not use illicit drug. ALLERGIES: NONE. FAMILY MEDICAL HISTORY: Negative for COPD. REVIEW OF SYSTEMS: He has no fever, chills, nausea, vomiting, hematemesis, melena, hematochezia, hematuria, or dysuria. OUTPATIENT MEDICATIONS: 1. DuoNeb every 4 hours as needed. 2. Trelegy Ellipta one puff daily. 3. Levsin two tablets as needed. 4. Xanax 1 mg nightly. 5. Prednisone 10 mg b.i.d. 6. Megace 80 mg b.i.d. 7. Diltiazem 240 mg daily. 8. Tylenol No. 3 one daily as needed. 9. Protonix 40 mg daily. 10. Bisoprolol/hydrochlorothiazide one daily. PHYSICAL EXAMINATION: VITAL SIGNS: Temperature 97.3, pulse 92, respirations 20, O2 saturation 100%, blood pressure 173/78. GENERAL: He is awake and alert, and in no obvious distress. He is talking much less than usual and is somewhat confused. HEENT: Pupils are reactive. Sclerae icteric. Oropharynx clear. NECK: No adenopathy. No JVD. LUNGS: He has tight end expiratory wheezing bilaterally with prolonged expiratory phase. CARDIAC: S1 and S2, regular without audible murmur. ABDOMEN: Soft, nontender, and nondistended. EXTREMITIES: No clubbing, cyanosis, or edema. He has significant muscle wasting. LABORATORY DATA: Sodium 137, potassium 5.8, chloride 102, CO2 of 28, BUN 21, creatinine 0.8, glucose 127. White blood cell count 10.8 hematocrit 32.5, and platelet count 245. X-ray shows hyperinflation without obvious mass, effusion, or infiltrate. ASSESSMENT: 1. Chronic obstructive pulmonary disease with exacerbation. 2. Rule out CO2 retention. 3. Hyperkalemia of unknown etiology. RECOMMENDATIONS: 1. Check ABG. 2. Continue IV steroids. 3. He is receiving Kayexalate for the hyperkalemia as written by Dr. Singh. 4. We will follow with you. The patient may need transfer to [facility] on BiPAP if his CO2 is grossly high. Job ID: [id number]
[2018-12-30] MEDS ORDERED: EPINEPHrine 1 MG/10 ML Abboject SYRINGE ONE (11:11)
[2018-12-30] MEDS: Brimonidine Tartrate 0.2% Ophth Soln 5 ml Bottle EA EYE SCH ×2 (11:39→20:41)
[2018-12-30] MEDS: Megestrol Acetate 40 MG TAB PO SCH ×2 (11:39→20:40)
[2018-12-30] MEDS: Bisoprolol Fumarate/HCTZ 10 mg/6.25 mg Tablet PO SCH (11:39)
[2018-12-30] MEDS: ALPRAZolam 1 MG TAB PO SCH (20:40)
[2018-12-30] MEDS: Latanoprost 0.005% Ophth Soln 2.5 ml Bottle EA EYE SCH (20:40)
[2018-12-31] MEDS: methylPREDNISolone Sod Succ/PF 125 MG/2 ML VIAL IVP SCH ×4 (00:16→18:51)
[2018-12-31] MEDS: Acetaminophen/Codeine 30-300mg Tablet PO PRN (02:51)
[2018-12-31 05:17] LABS: Anion Gap 14 mmol/L (10-20); BUN (Urea Nitrogen) 30 mg/dL (8.4-25.7); Calc. Creatinine Clearance 37 mL/min (70-130); Calcium 9.1 mg/dL (7.8-10.44); Carbon Dioxide 32 mmol/L (23-31); Chloride 98 mmol/L (98-107); Estimated GFR-MDRD 75; Glucose 160 mg/dL (83-110); Potassium 4.5 mmol/L (3.5-5.1); Sodium 139 mmol/L (136-145)
[2018-12-31] MEDS: Budesonide 0.5 MG/2 ML NEB NEB SCH ×2 (06:22→19:02)
[2018-12-31 08:14] LABS: Actual Bicarbonate (HCO3a) 34.7 mEq/L (22-28); Analyzer IN Cardio OR; Base Excess (BEa) 7.8 mEq/L (-2.0 to +3.0); Calcium, Ionized 1.21 mmol/L (1.12-1.30); Carboxyhemoglobin (COHb) 0.5 gm% (0.0-3.0); Hemoglobin (Hb) 10.2 g/dL (14.0-18.0); O2 Tension (PaO2) 106.3 mmHg (> 70.0); Potassium - ABG Lab 4.08 mmol/L (3.70-5.30); pH, Arterial 7.37 (7.35-7.45)
[2018-12-31 08:15] LABS: ALV-art Gradient 15.965 (0-20); CO2 Tension 61.9 mmHg (35.0-45.0); Puncture Site RRA
[2018-12-31] MEDS ORDERED: Furosemide 20 MG/2 ML VIAL SLOW IVP SCH (09:00)
[2018-12-31] MEDS: Megestrol Acetate 40 MG TAB PO SCH ×2 (09:10→20:28)
[2018-12-31] MEDS: Brimonidine Tartrate 0.2% Ophth Soln 5 ml Bottle EA EYE SCH ×2 (09:10→20:28)
[2018-12-31] MEDS: Bisoprolol Fumarate/HCTZ 10 mg/6.25 mg Tablet PO SCH (09:10)
--- NOTE | 2018-12-31 10:24 | PRG ---
DATE OF SERVICE: 12/31/2018 SUBJECTIVE: The patient is doing a little better compared to yesterday. OBJECTIVE: VITAL SIGNS: Temperature 97.6, pulse 81, respirations 17, O2 saturation 98%, and blood pressure 129/65. HEENT: Unremarkable. NECK: No JVD. LUNGS: He has bilateral end-expiratory wheezing. CARDIAC: S1 and S2. Regular. ABDOMEN: Soft, nontender. EXTREMITIES: Some muscle wasting. LABORATORY DATA: Sodium 139, potassium 4.5, BUN 30, creatinine 1.1, glucose 160. pH 7.37, pCO2 of 62, pO2 of 106, that is on 3 L. White blood cell count 10.9, hematocrit 32.5, and platelet count 245. ASSESSMENT: 1. Chronic obstructive pulmonary disease with exacerbation. 2. Chronic hypercapnic respiratory failure - his CO2 is probably near baseline. PLAN: 1. Continue steroids, nebulization treatments, and low-flow oxygen. 2. Low threshold for BiPAP if he gets worse. 3. I think it is okay to keep watching him on the floor for the time being. Job ID: [id number]
[2018-12-31] MEDS: Arformoterol 15 MCG/2 ML NEB NEB SCH (19:01)
[2018-12-31] MEDS: ALPRAZolam 1 MG TAB PO SCH (20:27)
[2018-12-31] MEDS: Latanoprost 0.005% Ophth Soln 2.5 ml Bottle EA EYE SCH (20:28)
[2019-01-01] MEDS: methylPREDNISolone Sod Succ/PF 125 MG/2 ML VIAL IVP SCH ×4 (00:33→18:30)
[2019-01-01] MEDS: Acetaminophen/Codeine 30-300mg Tablet PO PRN ×2 (00:36→06:05)
[2019-01-01] MEDS: Budesonide 0.5 MG/2 ML NEB NEB SCH ×2 (07:32→19:35)
[2019-01-01] MEDS: Arformoterol 15 MCG/2 ML NEB NEB SCH ×2 (07:33→19:36)
--- NOTE | 2019-01-01 08:32 | RAD ---
FRONTAL VIEW CHEST: Date: 01/01/19 COMPARISON: 12/29/18. INDICATION: Rales, left lower lobe. FINDINGS: There is evidence of pulmonary emphysema with interstitial prominence bilaterally. No focal consolida tion, significant effusion, or discrete pneumothorax. These overlie the chest limiting detail. Chest is otherwise similar. IMPRESSION: COPD. POS: [facility]
[2019-01-01] MEDS: Bisoprolol Fumarate/HCTZ 10 mg/6.25 mg Tablet PO SCH (08:56)
[2019-01-01] MEDS: Megestrol Acetate 40 MG TAB PO SCH ×2 (08:56→21:26)
[2019-01-01] MEDS: Furosemide 20 MG TAB PO SCH (08:57)
[2019-01-01] MEDS: Brimonidine Tartrate 0.2% Ophth Soln 5 ml Bottle EA EYE SCH ×2 (08:57→21:20)
[2019-01-01 09:10] LABS: BUN (Urea Nitrogen) 34 mg/dL (8.4-25.7); Calc. Creatinine Clearance 41 mL/min (70-130); Calcium 9.6 mg/dL (7.8-10.44); Estimated GFR-MDRD 82; Glucose 181 mg/dL (83-110)
[2019-01-01 09:21] LABS: Anion Gap 14 mmol/L (10-20); Carbon Dioxide 36 mmol/L (23-31); Chloride 93 mmol/L (98-107); Potassium 4.1 mmol/L (3.5-5.1); Sodium 139 mmol/L (136-145)
--- NOTE | 2019-01-01 09:53 | PRG ---
DATE OF SERVICE: 01/01/2019 This is a 35 minutes critical care time. SUBJECTIVE: The patient remains on the floor. He looks worse than yesterday. He is more tachypneic and his speech is definitely more labored. OBJECTIVE: VITAL SIGNS: Temperature is 98.1, pulse 78, respirations in the high 20s, and O2 saturation 99%. HEENT: Unremarkable. NECK: No JVD. LUNGS: Poor air movement with continued wheezing. CARDIAC: S1 and S2. Regular. ABDOMEN: Soft. EXTREMITIES: No edema. LABORATORY DATA: No labs were done today. ASSESSMENT: 1. Chronic obstructive pulmonary disease with exacerbation. 2. Acute hypoxic and hypercapnic respiratory failure. PLAN: Given the patient's deterioration, I think I should go ahead and move him down to critical care and try BiPAP. We will continue steroids and nebs. His prognosis is poor. I will speak to the when she returns from her doctor's appointment. Job ID: [id number]
[2019-01-01 09:55] LABS: Band 4 % (5-11); Hemoglobin 10.7 g/dL (14.0-18.0); Lymphocytes 7 % (21-51); MDiff Complete? YES; Mean Corpuscular HGB CONC 29.8 g/dL (32.0-36.0); Mean Corpuscular Hemoglobin 28.1 pg (27.0-31.0); Mean Corpuscular Volume 94.3 fL (78.0-98.0); Mean Platelet Volume 7.5 fL (7.4-10.4); Neutrophil 89 % (42-75); Platelet Count 381 thou/uL (130-400); Polychromasia SLIGHT = 2-3 cells (100X) (0-2/hpf); RBC Distribution Width 13.4 % (11.5-14.5); White Blood Cell (WBC) Count 18.1 thou/uL (4.8-10.8)
[2019-01-01] MEDS: ALPRAZolam 1 MG TAB PO SCH (21:20)
[2019-01-01] MEDS: Latanoprost 0.005% Ophth Soln 2.5 ml Bottle EA EYE SCH (21:26)
[2019-01-02] MEDS: methylPREDNISolone Sod Succ/PF 125 MG/2 ML VIAL IVP SCH ×4 (00:10→17:55)
[2019-01-02] MEDS: Acetaminophen/Codeine 30-300mg Tablet PO PRN ×4 (05:40→20:35)
[2019-01-02] MEDS: Budesonide 0.5 MG/2 ML NEB NEB SCH ×2 (06:28→18:28)
[2019-01-02] MEDS: Arformoterol 15 MCG/2 ML NEB NEB SCH ×2 (06:29→18:28)
[2019-01-02 06:35] LABS: Actual Bicarbonate (HCO3a) 41.8 mEq/L (22-28); Base Excess (BEa) 15.7 mEq/L (-2.0 to +3.0); CO2 Tension 58.9 mmHg (35.0-45.0); Calcium, Ionized 1.17 mmol/L (1.12-1.30); Carboxyhemoglobin (COHb) 0.7 gm% (0.0-3.0); Hemoglobin (Hb) 11.1 g/dL (14.0-18.0); O2 Tension (PaO2) 70.8 mmHg (> 70.0); Potassium - ABG Lab 3.65 mmol/L (3.70-5.30); pH, Arterial 7.47 (7.35-7.45)
[2019-01-02 06:37] LABS: ALV-art Gradient 40.955 (0-20); Puncture Site RRA
--- NOTE | 2019-01-02 09:30 | PRG ---
DATE OF SERVICE: 01/02/2019 SUBJECTIVE: Mr. Fisher is continuing to use the [employer] BiPAP on and off. OBJECTIVE: VITAL SIGNS: On exam, temperature is 97.3, pulse 83, blood pressure 160/87, and O2 sat 100%. HEENT: Unremarkable. NECK: No JVD. LUNGS: No wheezing, but has distant breath sounds. CARDIAC: S1 and S2, regular. ABDOMEN: Soft. EXTREMITIES: No edema. LABORATORY DATA: ABG; pH of 7.47, pCO2 of 58, and pO2 of 70. ASSESSMENT: 1. Chronic hypercapnic respiratory failure. 2. End-stage chronic obstructive pulmonary disease. 3. Chronic obstructive pulmonary disease with exacerbation. PLAN: 1. Continue BiPAP p.r.n. 2. He actually has a Trilogy ventilator at home, but I doubt he is using it. 3. Continue steroids, nebulization treatments. 4. May need to consider some type of antidepressant. 5. I did lower the steroid dose today because he is having some psychotic symptoms, which I believe most likely is a result of the high-dose steroids that he is on. Job ID: [id number]
[2019-01-02] MEDS: Furosemide 20 MG TAB PO SCH (09:53)
[2019-01-02] MEDS: Bisoprolol Fumarate/HCTZ 10 mg/6.25 mg Tablet PO SCH (09:55)
[2019-01-02] MEDS: Megestrol Acetate 40 MG TAB PO SCH (10:01)
[2019-01-02] MEDS: Brimonidine Tartrate 0.2% Ophth Soln 5 ml Bottle EA EYE SCH ×2 (10:04→20:34)
[2019-01-02] MEDS ORDERED: Methyl Salicylate/Menthol 85 GM TUBE TOP PRN (13:23)
[2019-01-02] MEDS: ALPRAZolam 1 MG TAB PO SCH (20:34)
[2019-01-02] MEDS: Latanoprost 0.005% Ophth Soln 2.5 ml Bottle EA EYE SCH (20:40)
[2019-01-02] MEDS: Megestrol Acetate 800 MG/20 ML UDCUP PO SCH (21:12)
[2019-01-03] MEDS: methylPREDNISolone Sod Succ/PF 125 MG/2 ML VIAL IVP SCH ×5 (00:19→18:11)
[2019-01-03] MEDS: Acetaminophen/Codeine 30-300mg Tablet PO PRN ×3 (03:19→18:29)
[2019-01-03 05:42] LABS: BUN (Urea Nitrogen) 50 mg/dL (8.4-25.7); Calc. Creatinine Clearance 31 mL/min (70-130); Calcium 9.3 mg/dL (7.8-10.44); Estimated GFR-MDRD 58; Glucose 180 mg/dL (83-110)
[2019-01-03 05:51] LABS: Anion Gap 15 mmol/L (10-20); Carbon Dioxide 38 mmol/L (23-31); Chloride 90 mmol/L (98-107); Potassium 3.7 mmol/L (3.5-5.1); Sodium 139 mmol/L (136-145)
[2019-01-03 06:00] LABS: Band 2 % (5-11); Hemoglobin 10.7 g/dL (14.0-18.0); Hypochromia SLIGHT = 6-15 cells (100X) (0-5/hpf); Lymphocytes 5 % (21-51); MDiff Complete? YES; Mean Corpuscular HGB CONC 29.9 g/dL (32.0-36.0); Mean Corpuscular Hemoglobin 28.2 pg (27.0-31.0); Mean Corpuscular Volume 94.1 fL (78.0-98.0); Mean Platelet Volume 7.7 fL (7.4-10.4); Monocytes 5 % (0-10); Neutrophil 88 % (42-75); Platelet Count 340 thou/uL (130-400); Platelet Morphology Comment Appears Adequate; RBC Distribution Width 13.4 % (11.5-14.5); White Blood Cell (WBC) Count 16.6 thou/uL (4.8-10.8)
[2019-01-03] MEDS: Budesonide 0.5 MG/2 ML NEB NEB SCH ×2 (06:30→18:45)
[2019-01-03] MEDS: Arformoterol 15 MCG/2 ML NEB NEB SCH ×2 (06:30→18:45)
[2019-01-03] MEDS: Megestrol Acetate 800 MG/20 ML UDCUP PO SCH ×2 (08:36→21:31)
[2019-01-03] MEDS: Bisoprolol Fumarate/HCTZ 10 mg/6.25 mg Tablet PO SCH (08:38)
[2019-01-03] MEDS: Furosemide 20 MG TAB PO SCH (08:38)
[2019-01-03] MEDS: Brimonidine Tartrate 0.2% Ophth Soln 5 ml Bottle EA EYE SCH ×2 (08:39→21:30)
--- NOTE | 2019-01-03 10:13 | PRG ---
DATE OF SERVICE: 01/03/2019 SUBJECTIVE: Mr. Fisher continues to do quite poorly. He is intermittently on BiPAP. His is at the bedside this morning. OBJECTIVE: VITAL SIGNS: Temperature 98.5, pulse 99, blood pressure 146/80, O2 saturation 97%. HEENT: Unremarkable. NECK: No JVD. LUNGS: Poor air movement with some audible wheezing. CARDIAC: S1, S2. Regular. ABDOMEN: Soft. EXTREMITIES: Severe muscle wasting. LABORATORY DATA: White blood cell count 16.6, hematocrit 35.8, and platelet count 340. Sodium 139, potassium 3.7, chloride 90, CO2 of 38, BUN 15, creatinine 1.4, glucose 180. ASSESSMENT: End-stage chronic obstructive pulmonary disease without much improvement despite nebulization treatments, aggressive steroids and intermittent BiPAP. PLAN: I spoke to the very directly this morning. I feel that Mr. Fisher may be approaching the end of his life. I briefly discussed code status issues. This is something she will need to talk with her family about as previously the patient wanted everything done. My concern is that he would not be able to rebound from an endotracheal intubation should that be necessary. For the time being, he will be kept in the IMCU and we will continue the current treatment. His prognosis for recovery is quite poor. Job ID: [id number]
[2019-01-03] MEDS: Latanoprost 0.005% Ophth Soln 2.5 ml Bottle EA EYE SCH (21:30)
[2019-01-03] MEDS: ALPRAZolam 1 MG TAB PO SCH (21:30)
[2019-01-04] MEDS: methylPREDNISolone Sod Succ/PF 125 MG/2 ML VIAL IVP SCH ×5 (00:15→23:47)
[2019-01-04] MEDS: Acetaminophen/Codeine 30-300mg Tablet PO PRN (01:05)
[2019-01-04] MEDS ORDERED: HYDROcodone/Acetaminophen 10/325 mg Tablet PO PRN (05:59)
[2019-01-04] MEDS: Morphine IR 10 MG/5 ML UDCUP PO PRN ×3 (06:08→16:42)
[2019-01-04 07:00] LABS: BUN (Urea Nitrogen) 57 mg/dL (8.4-25.7); Calc. Creatinine Clearance 33 mL/min (70-130); Calcium 9.5 mg/dL (7.8-10.44); Estimated GFR-MDRD 63; Glucose 162 mg/dL (83-110)
[2019-01-04 07:09] LABS: Anion Gap 16 mmol/L (10-20); Chloride 87 mmol/L (98-107); Potassium 3.2 mmol/L (3.5-5.1); Sodium 141 mmol/L (136-145)
[2019-01-04 07:15] LABS: Carbon Dioxide 41 mmol/L (23-31)
[2019-01-04 07:37] LABS: Anisocytosis SLIGHT = 6-15 cells (100X) (0-5/hpf); Band 6 % (5-11); Burr Cells SLIGHT = 2-5 cells (100X) (0-1/hpf); Hemoglobin 11.9 g/dL (14.0-18.0); Hypochromia SLIGHT = 6-15 cells (100X) (0-5/hpf); MDiff Complete? YES; Mean Corpuscular HGB CONC 30.6 g/dL (32.0-36.0); Mean Corpuscular Hemoglobin 28.5 pg (27.0-31.0); Mean Platelet Volume 7.9 fL (7.4-10.4); Microcytosis SLIGHT = 6-15 cells (100X) (0-5/hpf); Monocytes 4 % (0-10); Neutrophil 86 % (42-75); Ovalocytes SLIGHT = 2-5 cells (100X) (0-1/hpf); Platelet Count 359 thou/uL (130-400); Platelet Morphology Comment Appears Adequate; Polychromasia SLIGHT = 2-3 cells (100X) (0-2/hpf); RBC Distribution Width 13.5 % (11.5-14.5); Reactive Lymphocytes 4 % (0-10); Red Blood Cell (RBC) Count 4.19 mill/uL (4.70-6.10); Schistocytes SLIGHT = 2-5 cells (100X) (0-1/hpf); White Blood Cell (WBC) Count 15.2 thou/uL (4.8-10.8)
[2019-01-04] MEDS: Furosemide 20 MG TAB PO SCH (09:04)
[2019-01-04] MEDS: Bisoprolol Fumarate/HCTZ 10 mg/6.25 mg Tablet PO SCH (09:05)
[2019-01-04] MEDS: Brimonidine Tartrate 0.2% Ophth Soln 5 ml Bottle EA EYE SCH ×2 (09:05→21:22)
[2019-01-04] MEDS: Megestrol Acetate 800 MG/20 ML UDCUP PO SCH ×2 (09:05→21:22)
--- NOTE | 2019-01-04 09:24 | RAD ---
CHEST 1 VIEW: COMPARISON: 01/01/2019. HISTORY: COPD. FINDINGS: Atherosclerosis of the aorta. Normal cardiac silhouette. Hyperinflation of the lung parenchyma with chronic changes. No pneumothorax. IMPRESSION: 1. Chronic obstructive pulmonary disease. 2. Atherosclerosis. POS: [facility]
[2019-01-04] MEDS: Arformoterol 15 MCG/2 ML NEB NEB SCH ×2 (09:39→18:39)
[2019-01-04] MEDS: Budesonide 0.5 MG/2 ML NEB NEB SCH ×2 (09:39→18:39)
--- NOTE | 2019-01-04 15:00 | PRG ---
DATE OF SERVICE: 01/04/2019 SUBJECTIVE: Mr. Fisher continues to struggle with his breathing. He has been on and off BiPAP. His was at the bedside. We discussed code status and she told me that he wants to be a DNR and not be put on mechanical ventilation or brought back in the event of cardiopulmonary arrest. OBJECTIVE: VITAL SIGNS: On exam, his temperature is 98.0, pulse 89, blood pressure 159/86, and O2 saturation 97% on 3 L. GENERAL: He is somewhat lethargic. HEENT: Unremarkable. NECK: No JVD. LUNGS: Poor breath sounds. CARDIAC: S1 and S2. Regular. ABDOMEN: Soft. EXTREMITIES: No edema. LABORATORY DATA: Sodium 141, potassium 3.2, chloride 87, CO2 of 41, BUN 57, creatinine 1.3, and glucose 162. ASSESSMENT: End-stage chronic obstructive pulmonary disease with continued hypercapnic and hypoxic respiratory failure. PLAN: DNAR order has been put on the chart. We will continue with the other interventions including BiPAP, steroids, and nebulization therapy. He has been given morphine order for comfort. We can add anxiety medication as needed. His prognosis is poor and I expect him to pass away soon. Job ID: [id number]
--- NOTE | 2019-01-04 18:54 | EKG ---
Test Reason : Blood Pressure : / mmHG Vent. Rate : 077 BPM Atrial Rate : 077 BPM P-R Int : 116 ms QRS Dur : 088 ms QT Int : 354 ms P-R-T Axes : 082 073 068 degrees QTc Int : 400 ms Normal sinus rhythm Voltage criteria for left ventricular hypertrophy Abnormal ECG Confirmed by DHARMESH CROCKETT ([id number]), supervising editor trailer IESHA ALEX ([id number]) on 01/04/2019 6:54:10 PM Referred By: Confirmed By:DHARMESH CROCKETT
[2019-01-04] MEDS: Latanoprost 0.005% Ophth Soln 2.5 ml Bottle EA EYE SCH (21:21)
[2019-01-04] MEDS: ALPRAZolam 1 MG TAB PO SCH (23:42)
[2019-01-05] MEDS: Morphine IR 10 MG/5 ML UDCUP PO PRN ×6 (01:28→21:26)
[2019-01-05] MEDS: methylPREDNISolone Sod Succ/PF 125 MG/2 ML VIAL IVP SCH ×3 (05:13→18:28)
[2019-01-05] MEDS: Budesonide 0.5 MG/2 ML NEB NEB SCH ×2 (07:29→19:27)
[2019-01-05] MEDS: Arformoterol 15 MCG/2 ML NEB NEB SCH ×2 (07:48→19:27)
[2019-01-05] MEDS: Bisoprolol Fumarate/HCTZ 10 mg/6.25 mg Tablet PO SCH (10:04)
[2019-01-05] MEDS: Furosemide 20 MG TAB PO SCH (10:04)
[2019-01-05] MEDS: Megestrol Acetate 800 MG/20 ML UDCUP PO SCH ×2 (10:05→21:04)
[2019-01-05] MEDS: Brimonidine Tartrate 0.2% Ophth Soln 5 ml Bottle EA EYE SCH ×2 (10:05→21:36)
--- NOTE | 2019-01-05 12:12 | PRG ---
DATE OF SERVICE: 01/05/2019 SUBJECTIVE: The patient continues to do poorly. He is using BiPAP intermittently. I cannot get him to really interact with me at all, although the family says that he "reversed his code status" last night to a full code. OBJECTIVE: VITAL SIGNS: Temperature 98.4, pulse 92, blood pressure 151/98. HEENT: Unremarkable. NECK: No adenopathy. No JVD. LUNGS: Poor air movement. CARDIAC: S1 and S2, regular. ABDOMEN: Soft. EXTREMITIES: No edema. ASSESSMENT: 1. End-stage chronic obstructive pulmonary disease. 2. Chronic hypercapnic respiratory failure. PLAN: I rediscussed end of life issues with the family today. I told them that an intubation would only serve in a resultant tracheostomy and assisted placement. My interactions with this patient in the past have shown that he would not want that. I have again emphasized that we need to focus on comfort care. I think the family needs some time to absorb this. I will continue to follow. In the meantime, we are continuing noninvasive ventilation, steroids, and nebulization treatments. So far, we have not seen any improvement. Job ID: [id number]
[2019-01-05] MEDS ORDERED: cloNIDine 0.1 MG TAB PO PRN (15:36)
--- NOTE | 2019-01-05 16:05 | RAD ---
PORTABLE CHEST: 01/05/2019 PROVIDED CLINICAL HISTORY: Decreased breath sounds. COMPARISON: 01/04/2019 FINDINGS: Interval development of consolidation involving the left mid and lower lung zones. Emphysematous prateek nges and atherosclerosis are again seen. The cardiac and mediastinal silhouette is unchanged in appe arance. IMPRESSION: Development of left mid and lower lung zone consolidation, which may reflect aspiration or pneumonia. POS: NIC
[2019-01-05] MEDS: Latanoprost 0.005% Ophth Soln 2.5 ml Bottle EA EYE SCH (21:36)
[2019-01-05] MEDS: ALPRAZolam 1 MG TAB PO SCH (21:36)
[2019-01-06] MEDS: methylPREDNISolone Sod Succ/PF 125 MG/2 ML VIAL IVP SCH ×5 (00:19→23:30)
[2019-01-06 01:07] LABS: Actual Bicarbonate (HCO3a) 56.1 mEq/L (22-28); Base Excess (BEa) 28.5 mEq/L (-2.0 to +3.0); Calcium, Ionized 1.15 mmol/L (1.12-1.30); Carboxyhemoglobin (COHb) 1.4 gm% (0.0-3.0); Hemoglobin (Hb) 13.7 g/dL (14.0-18.0); Potassium - ABG Lab 2.28 mmol/L (3.70-5.30)
[2019-01-06] MEDS: Morphine IR 10 MG/5 ML UDCUP PO PRN ×2 (02:35→23:57)
[2019-01-06 02:53] LABS: CO2 Tension 66.3 mmHg (35.0-45.0); O2 Tension (PaO2) 50.2 mmHg (> 70.0); pH, Arterial 7.55 (7.35-7.45)
[2019-01-06 02:54] LABS: Puncture Site LRAD
[2019-01-06 02:55] LABS: ALV-art Gradient 80.825 (0-20)
[2019-01-06 05:03] LABS: BUN (Urea Nitrogen) 41 mg/dL (8.4-25.7); Calc. Creatinine Clearance 40 mL/min (70-130); Calcium 9.9 mg/dL (7.8-10.44); Estimated GFR-MDRD 78; Glucose 289 mg/dL (83-110)
[2019-01-06 05:13] LABS: Anion Gap 22 mmol/L (10-20); Band 44 % (5-11); Chloride 84 mmol/L (98-107); Hemoglobin 13.5 g/dL (14.0-18.0); Lymphocytes 1 % (21-51); MDiff Complete? YES; Mean Corpuscular HGB CONC 29.7 g/dL (32.0-36.0); Mean Corpuscular Hemoglobin 28.8 pg (27.0-31.0); Metamyelocyte 7 % (0-0); Monocytes 2 % (0-10); Myelocyte 1 % (0-0); Neutrophil 45 % (42-75); Platelet Count 267 thou/uL (130-400); Platelet Morphology Comment Appears Adequate; RBC Distribution Width 13.7 % (11.5-14.5); Red Blood Cell (RBC) Count 4.69 mill/uL (4.70-6.10); Sodium 147 mmol/L (136-145); White Blood Cell (WBC) Count 20.7 thou/uL (4.8-10.8)
[2019-01-06 05:15] LABS: Carbon Dioxide 43 mmol/L (23-31); Potassium 2.4 mmol/L (3.5-5.1)
[2019-01-06] MEDS ORDERED: Potassium Chloride 20 MEQ TAB PO SCH (05:45)
[2019-01-06] MEDS: Arformoterol 15 MCG/2 ML NEB NEB SCH ×2 (07:32→19:27)
[2019-01-06] MEDS: Budesonide 0.5 MG/2 ML NEB NEB SCH ×2 (07:32→19:26)
[2019-01-06] MEDS ORDERED: Magnesium 2 GM/NS 0.9% 100 ML 4 GM in Premix Bag 1 BAG IVPB SCH (09:15)
[2019-01-06] MEDS: Megestrol Acetate 800 MG/20 ML UDCUP PO SCH ×2 (09:17→20:42)
[2019-01-06] MEDS: Furosemide 20 MG TAB PO SCH (09:18)
[2019-01-06] MEDS: Bisoprolol Fumarate/HCTZ 10 mg/6.25 mg Tablet PO SCH (09:18)
[2019-01-06] MEDS: Potassium Chloride 20 MEQ TAB PO SCH ×3 (09:19→20:41)
[2019-01-06] MEDS: Simethicone Chewable 80 MG TAB PO SCH ×4 (09:19→20:50)
--- NOTE | 2019-01-06 09:32 | PRG ---
DATE OF SERVICE: 01/06/2019 SUBJECTIVE: This patient continues to do poorly despite aggressive care. OBJECTIVE: VITAL SIGNS: On exam; temperature is 98.6, pulse 101, blood pressure 122/95, and O2 saturation 94%. HEENT: Unremarkable. NECK: No JVD. LUNGS: Poor air movement with generalized wheezing. CARDIAC: S1 and S2. Regular. ABDOMEN: Soft. EXTREMITIES: No edema. LABORATORY DATA: Sodium 147, potassium 2.4, chloride 84, CO2 of 43, BUN 41, creatinine 1.1, and glucose 289. White blood cell count 20, hematocrit 45.6, and platelet count 267. A pH of 7.55, pCO2 of 66, pO2 of 50-probably a venous gas. ASSESSMENT: 1. 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 2. Chronic hypercapnic and hypoxic respiratory failure. 3. Questionable infiltrate on x-ray. PLAN: 1. Antibiotics were started yesterday. 2. I will try him on aminophylline as a last-ditch effort to see if he will improve. 3. Increase steroid dose. 4. One dose magnesium sulfate. 5. Discussed with at bedside. Job ID: [id number]
[2019-01-06] MEDS ORDERED: methylPREDNISolone Sod Succ/PF 125 MG/2 ML VIAL IVP SCH (10:00)
[2019-01-06] MEDS ORDERED: SODIUM CHLORIDE 0.9% IVPB SCH (10:00)
[2019-01-06] MEDS ORDERED: AMINOPHYLLINE IVPB SCH (10:00)
[2019-01-06] MEDS ORDERED: Magnesium Sulfate 4 GM in Sodium Chloride 0.9% 250 ML 250 ML IVPB SCH (10:00)
[2019-01-06] MEDS: Brimonidine Tartrate 0.2% Ophth Soln 5 ml Bottle EA EYE SCH ×2 (10:03→20:40)
[2019-01-06] MEDS: Aminophylline 50 MG in Sodium Chloride 0.9% 50 ML IVPB SCH (20:42)
[2019-01-06] MEDS: Latanoprost 0.005% Ophth Soln 2.5 ml Bottle EA EYE SCH (20:50)
[2019-01-06] MEDS: ALPRAZolam 1 MG TAB PO SCH (20:50)
[2019-01-07] MEDS: methylPREDNISolone Sod Succ/PF 125 MG/2 ML VIAL IVP SCH ×4 (05:51→23:38)
[2019-01-07] MEDS: Morphine IR 10 MG/5 ML UDCUP PO PRN ×2 (06:44→11:27)
[2019-01-07] MEDS: Arformoterol 15 MCG/2 ML NEB NEB SCH ×2 (07:56→18:18)
[2019-01-07] MEDS: Budesonide 0.5 MG/2 ML NEB NEB SCH ×2 (07:56→18:18)
[2019-01-07] MEDS: Simethicone Chewable 80 MG TAB PO SCH ×4 (09:18→20:51)
[2019-01-07] MEDS: Megestrol Acetate 800 MG/20 ML UDCUP PO SCH ×2 (09:19→20:51)
[2019-01-07] MEDS: Fluconazole 100 MG TAB PO SCH (09:19)
[2019-01-07] MEDS: Furosemide 20 MG TAB PO SCH (09:19)
[2019-01-07] MEDS: Aminophylline 50 MG in Sodium Chloride 0.9% 50 ML IVPB SCH ×2 (09:19→20:52)
[2019-01-07] MEDS: Brimonidine Tartrate 0.2% Ophth Soln 5 ml Bottle EA EYE SCH ×2 (09:19→20:50)
[2019-01-07 09:20] VITALS: BP 151/95
[2019-01-07] MEDS: Bisoprolol Fumarate/HCTZ 10 mg/6.25 mg Tablet PO SCH (09:20)
--- NOTE | 2019-01-07 09:37 | PRG ---
DATE OF SERVICE: 01/07/2019 SUBJECTIVE: The patient actually looks a little better today compared to what he has been. OBJECTIVE: VITAL SIGNS: Temperature 97.6, pulse 90, blood pressure 142/87, and O2 saturation 96%. 24-hour intake 650 and output 250+. HEENT: Unremarkable. NECK: No JVD. LUNGS: Very much decreased wheezing compared to yesterday. CARDIAC: S1 and S2. Regular. ABDOMEN: Soft. EXTREMITIES: No edema. LABORATORY DATA: No labs were obtained today. ASSESSMENT: End-stage chronic obstructive pulmonary disease with severe exacerbation. PLAN: 1. Check theophylline level tomorrow. 2. Check chemistry tomorrow given the patient's hypokalemia. 3. Check theophylline level in the morning. Job ID: [id number]
[2019-01-07] MEDS ORDERED: Ondansetron PF 4 MG/2 ML Vial IVP PRN (12:04)
[2019-01-07 12:37] VITALS: BMI 17.7
[2019-01-07] MEDS: Pot Chloride/Pot Bicarb/Cit Ac 25 mEq Effervescent Tablet PO SCH ×2 (12:39→20:51)
[2019-01-07] MEDS ORDERED: Potassium Chloride 40 MEQ in Sodium Chloride 0.9% 250 ML 250 ML IVPB SCH (13:00)
[2019-01-07] MEDS ORDERED: Morphine 2 MG/ML SYRINGE SLOW IVP PRN ×2 (15:44→19:15)
[2019-01-07] MEDS ORDERED: Morphine 4 MG/ML VIAL SLOW IVP PRN ×2 (19:02→19:03)
[2019-01-07] MEDS: Latanoprost 0.005% Ophth Soln 2.5 ml Bottle EA EYE SCH (20:58)
[2019-01-07] MEDS ORDERED: ALPRAZolam 0.5 MG TAB PO SCH (21:00)
[2019-01-08] MEDS: Morphine 2 MG/ML SYRINGE SLOW IVP PRN ×2 (01:42→12:39)
[2019-01-08 05:20] LABS: Anion Gap 19 mmol/L (10-20); Chloride 92 mmol/L (98-107); Potassium 4.9 mmol/L (3.5-5.1); Sodium 151 mmol/L (136-145)
[2019-01-08 05:21] LABS: BUN (Urea Nitrogen) 83 mg/dL (8.4-25.7); Calc. Creatinine Clearance 18 mL/min (70-130); Carbon Dioxide 45 mmol/L (23-31); Estimated GFR-MDRD 32; Glucose 310 mg/dL (83-110)
[2019-01-08] MEDS: methylPREDNISolone Sod Succ/PF 125 MG/2 ML VIAL IVP SCH ×2 (06:06→12:39)
[2019-01-08] MEDS: Budesonide 0.5 MG/2 ML NEB NEB SCH (08:10)
[2019-01-08] MEDS: Arformoterol 15 MCG/2 ML NEB NEB SCH (08:10)
--- NOTE | 2019-01-08 09:25 | PRG ---
DATE OF SERVICE: 01/08/2019 SUBJECTIVE: The patient has continued to get worse. He is on the BiPAP. His is at the bedside. PHYSICAL EXAMINATION: VITAL SIGNS: Oxygen saturations 98%, respiratory rate in the 30s to 40s, pulse 113, temperature 98.6. HEENT: Unremarkable. NECK: No lymphadenopathy or JVD. LUNGS: Distant breath sounds. CARDIAC: S1, S2. Tachycardic. ABDOMEN: Soft. EXTREMITIES: No edema. LABORATORY DATA: Sodium 151, potassium 4.9, chloride 92, CO2 45, BUN 83, creatinine 2.4, glucose 310. Theophyline level is 3.9, which is low. ASSESSMENT: End-stage chronic obstructive pulmonary disease that is not responding to treatment. RECOMMENDATIONS: I have encouraged DNR status multiple times. The family is being in today. I think they will change the code status. There is not much more that can be done other than intubating the patient. Job ID: [id number]
[2019-01-08 10:45] VITALS: TEMP 99.5
[2019-01-08] MEDS: Furosemide 20 MG TAB PO SCH (10:57)
[2019-01-08] MEDS: Fluconazole 100 MG TAB PO SCH (10:57)
[2019-01-08] MEDS: Bisoprolol Fumarate/HCTZ 10 mg/6.25 mg Tablet PO SCH (10:57)
[2019-01-08] MEDS: Megestrol Acetate 800 MG/20 ML UDCUP PO SCH (10:57)
[2019-01-08] MEDS: Pot Chloride/Pot Bicarb/Cit Ac 25 mEq Effervescent Tablet PO SCH (10:58)
[2019-01-08] MEDS: Simethicone Chewable 80 MG TAB PO SCH (10:58)
--- NOTE | 2019-01-09 11:55 | PQF ---
BRITTANEY ADKINS MICHAEL E MD [id number] [facility]-247 [id number] CLINICAL DOCUMENTATION CLARIFICATION FORM: POST DISCHARGE Addendum to original discharge summary date: ____ Late entry note date: __ Date: 01/09/19 ATTN: Dr. Singh, Please exercise your independent, professional judgment in responding to the clarification form. Clinical indicators are provided on the bottom of this form for your review Please check appropriate box(s): [ ] Protein Calorie Malnutrition: [ ] Mild [ ] Moderate [ ] Severe [ ] Other Malnutrition (please specify) __ [ ] Underweight without malnutrition [ ] Cachexia [ ] Other diagnosis [ ] Unable to determine In addition, please specify: Present on Admission (POA): [ ] Yes [ ] No [ ] Unable to determine CLINICAL INDICATORS - SIGNS / SYMPTOMS / LABS "This is a thin cachectic, small frame male"--12/30 H&P BMI of 17.7--12/30 Nursing admission assessment Muscular wasting in upper and lower extremeitis--12/30 H&P under PE Patient taking 23% average of last 12 days---01/07 Nutrition assessment note RISK FACTORS COPD-stage IV---12/30 H&P COPD exacerbation--12/30 H&P Congestive heart failure--12/30 H&P Megestrol 40 mg/mL, 1 teaspoon bid for anorexia---12/30 H&P under current medication TREATMENT: Continue Ensure Enlive BID to aid with intake for weight gain---01/02 Nutrition assessment Recommend increasing Megace dosage to 400 mg----01/02 Nutrition assessment Thank you, Ashley Mejia, CCS 11:52AM Moderate Malnutrition (in acute illness) Energy Intake: <75% of estimated energy requirement for > 7 days Weight Loss: 1-2%/1 week; 5%/ 1 month; 7.5%/3 months Other: mild body fat loss; mild muscle mass loss; mild fluid accumulation; Severe Malnutrition (in acute illness) Energy Intake: < 50% of estimated energy requirement for > 5 days Weight Loss: >1-2%/1 week; >5%/1 month; >7.5%/3 months Other: moderate body fat loss; moderate muscle mass loss; moderate- severe fluid accumulation; measurably reduced clinical trial associate strength Moderate Malnutrition (in chronic illness) Energy Intake: <75% of estimated energy requirement for >1 month Weight Loss: 5%/1 month; 7.5%/3 months; 10%/6 months; 20%/1 year Other: mild body fat loss; mild muscle mass loss; mild fluid accumulation Severe Malnutrition (in chronic illness) Energy Intake: <75% of estimated energy requirement for >1 month Weight Loss: >5%/1 month; >7.5%/3 months; >10%/6 months; >20%/1 year Other: severe body fat loss; severe muscle mass loss; severe fluid accumulation; measurably reduced clinical trial associate strength (This form is maintained as a part of the permanent medical record) 2014 [employer] All Rights Reserved Roshan [email or web address] [phone] MTDD
--- NOTE | 2019-01-09 12:21 | PQF ---
BRITTANEY ADKINS MICHAEL E MD [id number] [id number] CLINICAL DOCUMENTATION CLARIFICATION FORM: POST DISCHARGE Addendum to original discharge summary date: ____ Late entry note date: __ Date: 01/06/19 ATTN: Dr. Singh, Please exercise your independent, professional judgment in responding to the clarification form. Clinical indicators are provided on the bottom of this form for your review Please check appropriate box(s): [ ] Protein Calorie Malnutrition: [ ] Mild [ ] Moderate [ ] Severe [ ] Other Malnutrition (please specify) __ [ x ] Underweight without malnutrition [ ] Cachexia [ ] Other diagnosis [ ] Unable to determine In addition, please specify: Present on Admission (POA): [ ] Yes [ ] No [ ] Unable to determine CLINICAL INDICATORS - SIGNS / SYMPTOMS / LABS "This is a thin cachectic small framed male--12/30 H&P BMI of 17.7---12/30 Nursing Assessment Anorexia--12/30 H&P Muscular wasting in upper and lower extremities---12/30 H&P Patient taking 63% average of last 4 mealsls--01/02 Nutrition assessment RISK FACTORS COPD stage IV--12/30 H&P COPD with exacerbation--12/30 H&P Congestive Heart Failure--12/30 H&P Gastroparesis--12/30 consult Megesrol 40 mg/mL, 1 teaspoon bid for anorexia--12/30 H&P TREATMENT: Continue Ensure Enlive BID to aid with intake for weight gain--01/02 Nutrition assessment Recommend increasing Megace dosage to 400mb BID--01/02 Nutrition assessment Thank you, Ashley Mejia, ROWAN 12:19PM Moderate Malnutrition (in acute illness) Energy Intake: <75% of estimated energy requirement for > 7 days Weight Loss: 1-2%/1 week; 5%/ 1 month; 7.5%/3 months Other: mild body fat loss; mild muscle mass loss; mild fluid accumulation; Severe Malnutrition (in acute illness) Energy Intake: < 50% of estimated energy requirement for > 5 days Weight Loss: >1-2%/1 week; >5%/1 month; >7.5%/3 months Other: moderate body fat loss; moderate muscle mass loss; moderate- severe fluid accumulation; measurably reduced title i teacher strength Moderate Malnutrition (in chronic illness) Energy Intake: <75% of estimated energy requirement for >1 month Weight Loss: 5%/1 month; 7.5%/3 months; 10%/6 months; 20%/1 year Other: mild body fat loss; mild muscle mass loss; mild fluid accumulation Severe Malnutrition (in chronic illness) Energy Intake: <75% of estimated energy requirement for >1 month Weight Loss: >5%/1 month; >7.5%/3 months; >10%/6 months; >20%/1 year Other: severe body fat loss; severe muscle mass loss; severe fluid accumulation; measurably reduced title i teacher strength (This form is maintained as a part of the permanent medical record) 2014 [employer] All Rights Reserved Ashley [email or web address] [phone] MTDD
--- NOTE | 2019-01-09 12:27 | PQF ---
BRITTANEY ADKINS MICHAEL E MD [id number] [facility]-247 [id number] CLINICAL DOCUMENTATION CLARIFICATION FORM: POST DISCHARGE Addendum to original discharge summary date: ____ Late entry note date: __ DATE: 01/09/19 ATTN: [place], Please exercise your independent, professional judgment in responding to the clarification form. Clinical indicators are provided on the bottom of this form for your review Please check appropriate box(s): HEART FAILURE: A. TYPE: [ ] Systolic / HFrEF [ x ] Diastolic / HFpEF [ ] Combined Systolic / Diastolic B. ACUITY [ ] Acute [ ] Acute on Chronic [ x ] Chronic [ ] Other diagnosis [ ] Unable to determine In addition, please specify: Present on Admission (POA): [ x ] Yes [ ] No [ ] Unable to determine For continuity of documentation, please document condition throughout progress notes and discharge summary. Thank You. CLINICAL INDICATORS - SIGNS / SYMPTOMS / LABS Ejection Fraction = 55=60 %---12/30 Echocardiogram E/A flow reversal noted. Suggestive of diastolic dysfunction---12/30 Echocardiogram RISKS: Hypertension--12/30 H&P TREATMENTS: Echocardiogram--ordered 12/30 Oxygen--ordered 12/30 Thank you, Ashley Mejia, [facility] 12:25PM (This form is maintained as a part of the permanent medical record) 2014 [employer] All Rights Reserved Ashley [email or web address] [phone] [facility] PSYCH[facility]ATR[facility] CENTERJosé
--- NOTE | 2019-01-09 14:25 | DIS ---
DATE OF ADMISSION: 12/30/2018 DATE OF DISCHARGE: 01/08/2019 DATE OF : 01/08/2019 at 2:13 p.m. CHIEF COMPLAINT ON ADMISSION: Exacerbation of COPD. History and physical had previously been dictated, so I will resume from there with hospital course. HOSPITAL COURSE: The patient was placed in an intermediate care bed on the [facility] unit were q.4-hour nebulizer treatments were utilized with ipratropium and albuterol. The patient was placed on IV steroids. Pulmonary consultation was sought with Dr. Josh Parker. He saw the patient on 12/30/2018. Over the next 24 hours, the patient remained disoriented and agitated. He would take his nasal cannula often, had hypoxic confusion. Breath sounds were diminished diffusely, he was noted to be hypokalemic. His Solu-Medrol was increased and echocardiogram was checked. By 12/31, he was wanting more food, but was not conversive. His vital signs had improved somewhat. His ejection fraction showed a diastolic dysfunction, but ejection fraction was still 55% to 60%. His potassium had become corrected. By 01/01, he was more alert, answering questions correctly. He developed rales in his left lower lobe. He was still very confused. Lasix was added to his treatment. By 01/02, he was moved onto a medical bed and then he went to [facility] on 01/02/2019. Breath sounds remained diminished. It was determined by his dry kiln burner that he had hypoxic hypercapnic failure. By 01/03, he was noted to be in more confusion. His white count was elevating and his failure persisted. An attempt was made to wean down his steroids somewhat thinking it may have been worsening his confusion, but by 01/04 it was evident that he was probably not going to be discharged. The family was first consulted about making him a DNR at this point, who was showing some renal insufficiency as well as hypokalemia. We began to emphasize comfort measures. By 01/05, he expressed a desire to be resuscitated and so the family decided that he would be a full code. Although his breath sounds were diminished, he had diffuse rhonchi. He was in respiratory failure. His prognosis was extremely poor and demise was expected soon. By 01/06/2019, he continued to do poorly. Chest x-ray was showing infiltrate which may have been aspiration or early pneumonia. He was doing a lot of air swallowing with some abdominal distention. Again, his was counseled about his poor prognosis and the need to make him a DNR. By 01/07 , he aroused easily, indicated he did not feel like he was breathing very well, but he was not in any pain. His overall prognosis and condition did not change other than he had some thrush possibly as well on the back of his throat. Finally by 01/08/2019, he would arouse, but would not respond. Heart rate was increasing. Respiratory rate was increasing. Breath sounds remained diminished in all lobes. It was felt that he had some aspiration pneumonia on top of his hypercapnic hypoxic respiratory failure. and family were again counseled about making him a DNR and at this point, at around 10:00 a.m., the daughter came and agreed to make him a DNR. Then later the afternoon of 01/08, approximately at 2:00 p.m., he became more bradycardic and finally no pulse was noted at 2:08. The family panicked and decided that they wanted everything done so that a code was called and CPR with compressions begun. Dr. Parker was contacted and came to the resuscitation. Compressions without success had taken place and due to the lack of response, Dr. Parker ended up calling the code, noting that it was futile to continue it any longer. The patient was pronounced at 2:13 p.m. on 01/08/2019. Family was counseled and the body was released to the [facility]. DIAGNOSES: The diagnoses at the time of demise were end-stage chronic obstructive pulmonary disease, hypercapnic hypoxic respiratory failure, hyperkalemia, renal insufficiency, aspiration pneumonia, thrush, and mild diastolic dysfunction, chronic. The time required to review the chart, dependency counselor the family and prepare the necessary discharge paperwork came to 35 minutes. Job ID: [id number] [facility]
== END 2019-01-08 17:01 | disposition expired | DRG 190 ==
LOC: ERS 11:12 → 2SW 15:24 → OBSVTOIN 12-30 13:35 → IMCU/EMU 01-01 12:46
PROVIDERS: ADMIT Specialist; ATTEND Specialist
PROC: 5A09557 Assistance with Respiratory Ventilation, Greater than 96 Consecutive Hours, Continuous Positive Airway Pressure (ICD-10-PCS; 2019-01-03)
PROC: 5A12012 Performance of Cardiac Output, Single, Manual (ICD-10-PCS; principal; 2019-01-08)
DX: J44.1 Chronic obstructive pulmonary disease with (acute) exacerbation (principal); J96.22 Acute and chronic respiratory failure with hypercapnia; J96.21 Acute and chronic respiratory failure with hypoxia; J69.0 Pneumonitis due to inhalation of food and vomit; I50.32 Chronic diastolic (congestive) heart failure; Z68.1 Body mass index [BMI] 19.9 or less, adult; B37.0 Candidal stomatitis; I11.0 Hypertensive heart disease with heart failure; F41.1 Generalized anxiety disorder; G47.00 Insomnia, unspecified; E78.5 Hyperlipidemia, unspecified; K31.84 Gastroparesis; E87.6 Hypokalemia; E87.5 Hyperkalemia; I46.9 Cardiac arrest, cause unspecified; R63.6 Underweight; M13.812 Other specified arthritis, left shoulder; M13.811 Other specified arthritis, right shoulder; Z87.39 Personal history of other diseases of the musculoskeletal system and connective tissue; Z87.891 Personal history of nicotine dependence; Z79.51 Long term (current) use of inhaled steroids; Z79.52 Long term (current) use of systemic steroids; Z79.899 Other long term (current) drug therapy; Z98.890 Other specified postprocedural states
CPT/HCPCS: 36415; 71045; 80048; 80053; 80198; 82805; 83880; 84484; 85025; 87804; 93005; 93306; 94640; 94660; 94760; 96374; J0171; J0280; J1956; J2270; J2405; J2930; J3475; J3480; J7050; J7620; J7626; S0179